=== PATIENT | female | born 1980 | race Caucasian/White ===

== ENCOUNTER 2019-01-11 12:29 | Day surgery (SDC) | payer OTHER, SELFPAY ==
[2019-01-06 12:22] VITALS: BMI 43.2
[2019-01-11] VITALS (17 sets, daily range): BP systolic 130–172; BP diastolic 83–108; PULSE 88–97; RESP 10–18; TEMP 36.4–36.6; O2SAT 94–99; BMI 43.2
--- NOTE | 2019-01-11 | DI.RAD.S_ITS ---
PROCEDURE: XR LUMBAR SPINE 2-3V INDICATIONS: L5-S1 RIGHT HEMILAMI, L4-5 LAMI TECHNIQUE: Fluoroscopic images were obtained during an operative procedure and submitted for interpretation following the completion of the procedure. COMPARISON: [facility] Outside Film, MR, MR LUMBAR SPINE WITHOUT CONTRAST, 10/04/2018, 11:56. [facility] Outside Film, CT, CT LUMBAR SPINE WITHOUT CONTRAST, 11/03/2018, 11:47. FINDINGS: These fluoroscopic images were performed for intraoperative localization. On these images, metallic probes can be seen overlying the lower lumbar spine. Please correlate with intraoperative findings. IMPRESSION: Normal intraoperative examination. Dictated by: Paddy Maynard M.D. on 01/11/2019 at 15:55 Approved by: Paddy Maynard M.D. on 01/11/2019 at 15:57
[2019-01-11] MEDS: LACTATED RINGERS 1,000 ML 42 ML IV ×2 (13:31→15:52)
--- NOTE | 2019-01-11 14:29 | PM.PREOP ---
Pre-operative Note Interval Note History & Physical reviewed/Exam performed by Physician: Yes Changes to H&P: No
[2019-01-11] MEDS: MIDAZOLAM 2 MG/2 ML VIAL IV (14:48)
[2019-01-11] MEDS: APREPITANT 40 MG CAPSULE PO (14:48)
[2019-01-11] MEDS: CEFAZOLIN 2 GM/100 ML FROZ.PIGGY IV (15:05)
--- NOTE | 2019-01-11 15:44 | SUR.OPER ---
Prone on spine table, head in foam head support, padded chest and pelvic supports, gel pad at knees, lower legs supported by pillows; nipples, genitalia and toes free of pressure, arms secured on foam padded arm boards at <90 degrees abduction. Tape over blanket at thigh secured to table.
[2019-01-11] MEDS: BUPIVACAINE 0.25% W/ EPI 30 ML VIAL INJ (15:53)
[2019-01-11] MEDS: methylPREDNISolone acet DEPO 40 MG/ML VIAL IM (15:54)
--- NOTE | 2019-01-11 16:33 | P.OP_ITS ---
Operative Date/Time/Diagnoses Date of procedure: 01/11/19 Time of procedure: 15:33 Pre-op diagnosis: 1. L4-5, L5-S1 spinal stenosis 2. L5-S1 disc herniation Post-op diagnosis: same Procedure & Clinicians Procedure: 1. L4-5 laminectomy with partial faceteomies 2. L5-S1 right microdiscectomy with laminotomy 3. Utilization of microsurgical technique and operating microscope Same procedure as scheduled: Yes Indications: Patient has been having chronic back pain and worsening lumbar radiculopathy. Patient failed multiple conservative management with worsening pain weakness and numbness in her lower extremity. Patient has been having difficulty performing activity of daily living. After discussing risks benefits of treatment options, patient elected proceed with surgery. Surgeon: Kev Matt Assistant Account Manager: Irina Reeder Click Yes if Unassisted: No Anesthesia Type: General Operative Notes Closure Type: primary Specimen(s): none sent Estimated Blood Loss (mL): 10 Blood products transfused: none Procedure in detail: Patient was seen in the preoperative area. Risks and b enefits of the surgery was discussed with the patient. Informed consent was obtained from the patient and placed in the chart. Surgical site was marked. Patient was taken to the operative room. General anesthesia was administered. Prophylactic antibiotic was given to the patient less than 30 min before the incision was made. Patient was placed into a prone position on the Pierce table. Patient's back was then prepped and draped in the sterile fashion. Time- out was performed at this time. Using AP and lateral C-arm imaging the interval between L4-5 was identified and marked on patient's back. A 1 inch incision 1 in from midline was made on the right side. The fascia was incised in line with skin incision. Globus MARS retractors was placed inside the incision and docked onto the L4 lamina. Using microsurgical technique and operating microscope, a L4 laminectomy was performed using a Kerrison rongeur. Liagamentum flavum was resected at the site of the laminotomy. Either side of the dura was exposed. Partial facetcomies was performed to further decompress the lateral recess. After the laminectomy was completed, the area medial lateral superior and inferior to the area of the laminectomy was inspected and explored using a micro curette. No other impinging structure was identified. The MARs retractor was then redirected over the L5-S1 level over x-ray guidance. Using microsurgical technique and operating microscope a microdiskectomy was performed at L5-S1 level after performing a laminotomy at the L5 level. The thecal sac and the S1 nerve root was retracted medially to expose a large herniated disc at L5-S1 level. Annulotomy was performed using the 11 blade. The herniated disc fragment was removed using a pituitary. After the microdiskectomy was completed the area medial lateral superior inferior to the area of the disc herniation was palpated. No other impinging structure was identified. The wound was then irrigated with sterile normal saline. 40 mg Depo-Medrol was placed into the epidural space. The deep fascia was closed with 1-0 Vicryl. The subcutaneous tissue was closed with 2-0 Vicryl. The skin was closed with skin laura. Patient tolerated the procedure well. There were no complications. Patient was transferred recovery room in stable condition. Complications: none Post-operative Condition: stable Disposition: PACU Plan for aftercare: Discharge to home
[2019-01-11] MEDS: HYDROMORPHONE 2 MG INJ IV ×3 (16:55→17:08)
[2019-01-11] MEDS: HYDROMORPHONE 2 MG INJ (17:02)
[2019-01-11] MEDS: hydrOXYzine 50 MG/ML INJ 25 MG IM (17:03)
--- NOTE | 2019-01-11 17:27 | SUR.PHASEI ---
Patient arrived in PACU with 10/10 pain, crying, and moaning. Medicated with Dilaudid
[2019-01-11] MEDS: LORazepam 2 MG/ML INJ 0.25 MG IV (18:30)
[2019-01-11] MEDS: OXYCODONE/ACETAMINOPHEN 5/325 TABLET 1 TAB PO (18:41)
== END 2019-01-11 19:54 | disposition home or self-care (01) ==
LOC: OR 12:32
PROVIDERS: Visit Provider Orthopaedic Surgery Orthopaedic Surgery of the Spine
PROC: (CPT 63047; principal; 2019-01-11 14:45)
DX: M48.061 Spinal stenosis, lumbar region without neurogenic claudication (principal); M43.17 Spondylolisthesis, lumbosacral region; M51.17 Intervertebral disc disorders with radiculopathy, lumbosacral region; E03.9 Hypothyroidism, unspecified; M47.27 Other spondylosis with radiculopathy, lumbosacral region
CPT/HCPCS: 63047; 63030; 72100; 76000; J0690; J1030; J1170; J2060; J2250; J2704; J3010; J3410; J8501

== ENCOUNTER 2020-01-05 15:48 | Inpatient (IN) | payer OTHER, SELFPAY ==
[2019-12-28 13:03] VITALS: BMI 42.7
[2020-01-04] VITALS (17 sets, daily range): BP systolic 95–149; BP diastolic 49–92; PULSE 63–791; RESP 11–100; TEMP 36.3–36.9; O2SAT 2–100; BMI 42.7
--- NOTE | 2020-01-04 | DI.RAD.S_ITS ---
PROCEDURE: XR LUMBAR SPINE 2-3V INDICATIONS: L4-5 TLIF TECHNIQUE: 2 views of the lumbar spine were acquired. COMPARISON: [facility], CR, XR LUMBAR SPINE 2-3V, 01/11/2019, 16:39. FINDINGS: Spot fluoroscopic intraoperative images demonstrating L4-L5 posterior spinal fixation with paraspinal dilia and pedicle screws. There is also interbody cage graft. Expected intraoperative alignment. Dictated by: Mehul Quiñonez M.D. on 01/04/2020 at 15:45 Approved by: Mehul Quiñonez M.D. on 01/04/2020 at 15:46
[2020-01-04] MEDS: LACTATED RINGERS 1,000 ML 42 ML IV ×3 (11:38→14:58)
[2020-01-04] MEDS: ACETAMINOPHEN 325 MG TABLET 975 MG PO (12:06)
--- NOTE | 2020-01-04 12:07 | PM.PREOP ---
Pre-operative Note COVID-19 COVID-19 status: Negative Result date/Date tested (Pos, Neg/Pending): 01/02/20 Interval Note History & Physical reviewed/Exam performed by Physician: Yes Changes to H&P: No
[2020-01-04] MEDS: fentaNYL 100 MCG/2 ML INJ 50 MCG IV (12:22)
[2020-01-04] MEDS: CEFAZOLIN 2 GM/100 ML FROZ.PIGGY IV ×2 (12:38→20:30)
[2020-01-04] MEDS: BUPIVACAINE LIPOSOME 266 MG/20 ML VIAL INJ (13:23)
[2020-01-04] MEDS: BUPIVACAINE 0.25% W/ EPI 30 ML VIAL INJ (13:23)
--- NOTE | 2020-01-04 15:27 | P.OP_ITS ---
Operative Date/Time/Diagnoses Date of procedure: 01/04/20 Time of procedure: 13:28 Pre-op diagnosis: 1. L4-5 recurrent disc herniation 2. L4-5 spinal stenosis with radiculopathy with hx of microdiscectomy Post-op diagnosis: same Procedure & Clinicians Procedure: 1. L4-5 Postero-lateral and posterior interbody fusion 2. L4-5 interbody cage placement. 3. L4-5 decompressive laminectomy with bilateral facetecomies 4. L4-5 Posterior non-segmental instrumentation 5. [place]arlan of bone marrow from iliac crest 6. Utilization of microsurgical technique and operating microscope Same procedure as scheduled: Yes Indications: Patient has been having chronic back pain and worsening lumbar radiculopathy. Patient is status post previous lumbar microdiskectomy at the same level. Patient had good pain relief for over 6 months. Patient has progressive worsening radiculopathy with new MRI showing recurrent disc herniation causing radiculopathy on the left leg. Patient failed multiple conservative management with worsening pain weakness and numbness in her lower extremity. Patient has been having difficulty performing activity of daily living. After discussing risks benefits of treatment options, patient elected proceed with surgery. Surgeon: Kev Matt Mental Health Consultant: Ayde Gandara Click Yes if Unassisted: No Anesthesia Type: General Operative Notes Closure Type: primary Specimen(s): none sent Prosthetic devices, grafts, tissues, transplants, or devices: Globus revolve screws, Rise cage Estimated Blood Loss (mL): 50 Blood products transfused: none Procedure in detail: Patient was seen in the preoperative area. Risks and bennie efits of the surgery was discussed with the patient. Informed consent was obtained from the patient and placed in the chart. Surgical site was marked. Patient was taken to the operative room. General anesthesia was administered. Prophylactic antibiotic was given to the patient less than 30 min before the incision was made. Patient was placed into a prone position on the Pierce table. Patient's back was then prepped and draped in the sterile fashion. Time- out was performed at this time. Using AP and lateral C-arm imaging the interval between L4-5 was identified and marked on patient's back. A 2 inch incision 2 in from midline was made on the left side first. The fascia was incised in line with skin incision. Globus MARS retractors was placed inside the incision and docked onto the L4 lamina. Using microsurgical technique and operating microscope, a L4 laminectomy and L4-5 facetectomy was performed using a Kerrison rongeur. The disc space at L4-5 was identified. And a total diskectomy was performed at L4-5 level. Patient was found to have large extruded disc fragments in the epidural space compressing on the thecal sac as well as the left L4 and L5 nerve roots. After total fa cetectomy was performed in order to fully decompress the epidural space and neural foramen L4-5 level was found to be grossly unstable and require fusion procedure. The endplates were decorticated using a rasp and shaver. The total diskectomy and decortication was performed at L4-5 level in order to to accomplish a L4-5 fusion. The local bone from the laminectomy and facetectomy was saved for local bone grafting. After the total diskectomy and decortication was completed, Trifecta bone graft material was combined with local bone that was harvested earlier. At this time, a separate skin is incision was made over the iliac crest. A Jamshidi needle was inserted into the iliac crest through a separate skin incision. 5 cc of bone marrow aspiration was obtained through the separate skin incision using a Jamshidi needle from the iliac crest. The bone marrow aspiration was combined with local bone and the Trifecta bone grafting material. The bone grafting material was placed into the L4-5 interbody space along with a expandable cage. The cage was expanded to its maximum height using the torque limiting screwdriver. At this time a mirror image incision was made on the right side. The fascia was incised in line with the skin incision. Globus MARS retractor was inserted and docked onto the L4-5 posterolateral gutter. Using the power drill, posterior- lateral decortication was performed at L4-5 level until bleeding cortical bone was identified. The remaining bone grafting material was placed into the L4-5 posterior lateral gutter he order to accomplish posterolateral fusion at the L4- 5 level. Using the double C-arm technique, pedicle screws were placed into the L4-5 pedicles bilaterally. This was done by placing the Jamshidi needle into the pedicles, then placing the guidewires over the Jamshidi needle, and finally placing the cannulated screws over the guidewires bilaterally. After the pedicle screws were placed, 2 titanium rods was locked into the heads of the pedicle screws using locking caps and torque limiting screwdriver. After all the hardware was placed, and confirmed with AP and lateral C-arm imaging, the wound was then irrigated with sterile normal saline and packed with Ray-Mark gauze for 3 min to accomplish hemostasis. After the gauze was removed the deep fascia was closed with #1 Vicryl suture. The subcutaneous layer was closed with 2-0 Vicryl. The skin was closed with skin laura. Patient tolerated the procedure well. There were no complications. Complications: none Post-operative Condition: stable Disposition: PACU Plan for aftercare: Admit to inpatient hospital
[2020-01-04] MEDS: HYDROMORPHONE 2 MG INJ IV ×2 (15:49→16:03)
[2020-01-04] MEDS: fentaNYL 100 MCG/2 ML INJ IV ×2 (15:49→16:02)
[2020-01-04] MEDS: hydrOXYzine 50 MG/ML INJ 25 MG IM (15:49)
[2020-01-04] MEDS: ONDANSETRON 4 MG/2 ML INJ IV (15:49)
[2020-01-04] MEDS: OXYCODONE IR 5 MG TABLET PO (16:32)
[2020-01-04] MEDS: OXYCODONE IR 5 MG TABLET 10 MG PO ×3 (17:30→23:33)
[2020-01-04] MEDS: SODIUM CHLORIDE 0.9% 1,000 ML 100 ML IV (17:30)
[2020-01-04] MEDS: HYDROMORPHONE 0.5 MG INJ IV ×4 (17:31→23:33)
[2020-01-04] MEDS: SENNOSIDES 8.6 MG TABLET 17.2 MG PO (20:30)
[2020-01-04] MEDS: DOCUSATE 100 MG CAPSULE PO (20:30)
--- NOTE | 2020-01-04 22:55 | PC.NURSE ---
Admit/Evening Shift Note- Patient arrived to room via bed at 1645 via bed from PACU. Patient alert and oriented and able to make needs known to staff. Admit questions done, medications reviewed,physical assessment done, and skin check completed. Gauze dressing to lower back C/D/I. PRN Oxycodone and PRN IV Dilaudid given for C/O pain at 8-9/10. Patient tolerated with no s/s of ASE noted. SCD's on. Patient oriented to bed and bed controls, room, bathroom, lights, phone, menu, and call dexter/tv remote. Safety measures in place. Patient agrees to call for assistance. bed alarm activated. Callbell and phone within reach. will continue to monitor.
[2020-01-05] VITALS: BP 120/74; PULSE 84; RESP 16; TEMP 36.3; O2SAT 97
[2020-01-05] MEDS: HYDROMORPHONE 0.5 MG INJ IV ×5 (02:47→17:18)
[2020-01-05] MEDS: hydrOXYzine pamoate 25 MG CAPSULE PO ×2 (02:47→06:51)
[2020-01-05] MEDS: OXYCODONE IR 5 MG TABLET 10 MG PO (04:14)
[2020-01-05 04:16] VITALS: BP 134/66; PULSE 74; RESP 18; TEMP 36.3; O2SAT 95
[2020-01-05] MEDS: SODIUM CHLORIDE 0.9% 1,000 ML 100 ML IV (04:19)
[2020-01-05] MEDS: CEFAZOLIN 2 GM/100 ML FROZ.PIGGY IV (04:56)
--- NOTE | 2020-01-05 07:34 | P.PN_ITS ---
Subjective Subjective Date Patient Seen: 01/05/20 Time Patient Seen: 07:34 Interval history: POD #1 s/p L4-[address] Matt. Patient complaining of significant pain and the spasms in the back. She states the Oxycodone does not come close to controlling her pain. She has not worked with PT yet. She said prior to surgery her pain was at an 8/10. Exam Vital Signs (past 8 hours): - 01/05/20 00:00 01/05/20 04:16 Temperature 97.4 F L 97.3 F L Pulse Rate 84 74 Respiratory Rate 16 18 Blood Pressure 120/74 134/66 Pulse Oximetry 97 95 Oxygen Delivery Method Room Air Oxygen Flow Rate 0 Narrative Exam Narrative: Patient lying in bed in NAD. She is alert and oriented X3. Calv es are soft, compressible, and nontender bilaterally. She's able to actively dorsiflex and plantarflex. SILT throughout BLEs. SCDs on and functioning. Assessment & Plan Post-op Postoperative Procedures: Procedures Operation Date: 01/04/20 12:15 Actual Procedures Side Surgeon p L4-5 TLIF Kev Matt MD Patient will mobilize with PT today. Will change pain meds to Dilaudid 2 mg po every 3 hours from Oxycodone. Encouraged use of muscle relaxants as that is her primary complaint. Anticipate discharge in next 1-2 days. Quality VTE Deep Vein Thrombosis/Pulmonary Embolism Present on Admission: No
[2020-01-05] MEDS: LEVOTHYROXINE 125 MCG TABLET PO (08:28)
[2020-01-05] MEDS: SERTRALINE 50 MG TABLET 25 MG PO (08:28)
[2020-01-05 08:30] VITALS: BP 115/63; PULSE 84; RESP 16; TEMP 36.8; O2SAT 98
[2020-01-05] MEDS: HYDROMORPHONE 2 MG TABLET PO ×3 (08:30→15:46)
[2020-01-05] MEDS: DOCUSATE 100 MG CAPSULE PO ×2 (08:30→21:00)
[2020-01-05 08:40] LABS: Hematocrit 37.1 % (36-46); Hemoglobin 12.2 g/dL (12.0-16.0); Mean Corpuscular HGB Conc 32.7 % (30-36); Mean Corpuscular Hemoglobin 28.3 PG (26-34); Mean Corpuscular Volume 86.4 fL (80-100); Platelet Count 308 X10^3/uL (150-400); Red Cell Distribution Width 13.7 % (11.6-14.8); White Blood Cell Count 14.8 X10^3/uL (4.5-11.0)
--- NOTE | 2020-01-05 09:00 | PT.IIE ---
Current Diagnoses Other spondylosis with radiculopathy, lumbosacral region (01/04/20) Spinal stenosis, lumbar region without neurogenic claudication (01/04/20) Other intervertebral disc displacement, lumbar region (01/04/20) Surgery Performed Operation Date: 01/04/20 12:15 Actual Procedures p L4-5 TLIF - Kev Matt MD Surgical History (Last Updated 12/28/19 @ 13:13 by Britany Ureña, RN) History of back surgery (Acute 2019) History of section (Acute) Hx of discectomy (Acute) Hx of laminectomy (Acute 01/11/19) S/P epidural steroid injection (Acute) Medical History (Last Updated 12/28/19 @ 13:18 by Britany Ureña RN) Accidental fall on or from stairs or steps (Acute ~2004) Arthritis (Acute) Depression (Acute) Easy bruisability (Acute) History of DVT of lower extremity (Acute 2017) Hypothyroid (Acute) Spinal stenosis (Acute) Physical Therapy Inpatient Evaluation/Re-Eval M1 PT/OT-IP Prior Functional Status Start: 01/05/20 12:23 Freq: NEEDED Status: Active Protocol: Document 01/05/20 09:00 AB (Rec: 01/05/20 12:42 AB [id number]) Medical Review Prior Functional Status Medical History Reviewed Yes Communication able to make needs known Mobility and Gait pt stated that she is independent with all mobilities and ambulation without AD Social History Household Members spouse,children Living Arrangements House Number of Floors (Floors) Two Floors Number of Stairs To Enter/Railing? pt stated that she will just stay upstairs and has 12 steps with L rail to get there has 1 step to enter Home Environment Standard Height Toilet,Tub/ Shower Home Equipment Shower Seat without Backrest, Hand Held Shower,Grab Bars In Shower Additional Social History Comment pt stated that spouse is out doing business and she will be staying at her parents house and they will assist her. Above info is regarding pt's parent's house. Pt also has a 5y/o and 2 y/o daughter has an adjustable bed M2 PT-IP Current Condition Start: 01/05/20 12:23 Freq: NEEDED Status: Active Protocol: Document 01/05/20 09:00 AB (Rec: 01/05/20 12:42 AB [email or web address]) Physical Therapy Current Condition Current Condition Evaluation Date 01/05/20 Treatment Diagnosis s/p L4-5 fusion/lami; difficulty in walking Onset Date 01/04/20 Precautions Lumbar Precautions Log Roll,No Twisting,Limit Bending,Lifting Restriction of 10 lbs,Gait Belt above Incisional Area M3 PT-IP Subjective Start: 01/05/20 12:23 Freq: NEEDED Status: Active Protocol: Document 01/05/20 09:00 (Rec: 01/05/20 12:42 [email or web address]) Subjective Physical Therapy Visit Type Type Initial Evaluation Visit Start Time 09:00 Visit Stop Time 09:51 Total Visit Minutes 51 Number of LEAD SCIENTIST Visits 0 Physical Therapy Visit Comments Patient Comments pt c/o increase pain and requesting to go back to bed Therapy Pain Assessment Pain When Pain Assessed At Rest Pain Present Pain Present Pain Reported Location Lower Back Intensity 9 Scale Used Numeric (0 - 10) Pain Behaviors Crying,Guarding,Restlessness Pain Management Techniques Apply Cold,Distraction, Modification of Treatment,Re- positioning,Timing of Activity with Medications M4 PT-IP Mobility and Gait Start: 01/05/20 12:23 Freq: NEEDED Status: Active Protocol: Document 01/05/20 09:00 AB (Rec: 01/05/20 12:42 [email or web address]) PT-Bed Mobility Assessment Rolling Type of Rolling Log Rolling Level of Assist Maximal Assistance,2 Person Assistance Sit to Supine Sit to Supine Maximum Assistance,2 Person Assistance,Bedrails PT-Transfer Assessment Sit to and From Stand Sit to and from Stand Maximum Assistance,1 Person Assistance,2 Person Assistance ,Use of Upper Extremities Equipment Transfer Assistive Device Gait Belt,Front Wheeled Walker Orthotic/Prosthetic Devices or Brace: No Transfers Transfer Destination Chair,Bedside Commode Transfer Technique ambulated using FWW Transfer Ability Level of Assist Minimal Assistance,1 Person Assistance,Use of Upper Extremities Comments Mobility Comments pt sitting on chair. educated on back precautions. c/o increase back pain but pt already gottent her pain meds ~30 min. stated that she needs the IV pain meds. nurse aware. completed sit to stand max A but pt unable to stand upright and stated that she cannot do it. c/o not being able to breath. O2 sat checked 99%. pt rested for a few minutes. nurse gave IV dilaudid. attempted standing again and completed max A x 1- 2 and cues. ambulated towards the bed using fWW min A but requested to use the toilet before going back to bed. besdie commode positioned. completed stand to sit El to mod A for controlled descent. completed sit to stand from bedside commode max A . attempted to do hygiene care but unable and needs assistance. used FWW for standing balance min A while assisted with hygiene care. ambulated towards the bed using FWW min A. completed sit to supine max A x 1-2 and max cues. positioned in bed total A x 2 and max cues. call light and table placed within reach. Gait Assessment Gait Gait Assistance Required: Minimum Assistance Distance (Feet) 15 Able to Maintain Weight Bearing Status Yes During Gait Assistive Devices Assistive Device Gait Belt,Front Wheeled Walker Orthotic/Prosthetic Devices or Brace: No Gait Deviations General Gait Pattern Decreased Stride Length, Decreased Feet Clearance,Step- to Gait Factors Limiting Gait Function Factors Limiting Gait Function Decreased Activity Tolerance, Decreased Sensation,Decreased Strength,Difficulty Following Directions,Limited Range of Motion,Pain,Poor Balance,Poor Safety Awareness PT-Balance Assessment Sitting Balance and Reactions Static Sitting Balance Ability Good Dynamic Sitting Balance Ability Fair Standing Balance and Reactions Static Standing Balance Ability Poor Dynamic Standing Balance Ability Poor Device Used FWW M5 PT-IP Objective Assessments Start: 01/05/20 12:23 Freq: NEEDED Status: Active Protocol: Document 01/05/20 09:00 (Rec: 01/05/20 12:42 [email or web address]) Orientation Orientation/Cognition Level of Alertness Alert Orientation Name,Situation Safety Awareness Decreased Safety Awareness Gross Range of Motion Lower Extremity ROM Assessment Within Functional Limits Strength Lower Extremity Strength Assessment Bilaterally Impaired Comments Strength Comments RLE: 4-/5 LLE 3+/5 Coordination Assessment Gross Coordination Gross Coordination WNL Sensation Assessment Sensation Gross Sensation Left LE Impaired Comments Sensation Comments stated decrease sensation on L big and 2nd toes Muscle Tone Muscle Tone WNL Yes M6 PT-IP Treatment Start: 01/05/20 12:23 Freq: NEEDED Status: Active Protocol: Document 01/05/20 09:00 AB (Rec: 01/05/20 12:42 [email or web address]) Physical Therapy Treatment Education Education Provided Precautions,Weight Bearing Status,Post-Op Packet,Safety M7 PT-IP Assessment and Plan Start: 01/05/20 12:23 Freq: NEEDED Status: Active Protocol: Document 01/05/20 09:00 AB (Rec: 01/05/20 12:42 AB [email or web address]) PT Summary Assessment and Plan Potential Rehabilitation Potential Good Status of Condition at Evaluation Evolving Summary Impairments Pain,ROM,Strength,Balance, Coordination,Sensation,Tone, Cognition,Bed Mobility, Transfers,Gait,Activity Tolerance Assessment Summary pt requiring max A x1-2 and max cues and unable to tolerate much activity due to c/o increase pain. informed pt regarding current level of assistance and probable need to go to SNF rehab depending on progress. pt understood and agreed. stated that she knows she has to be able to move better before she can go home. will continue to assess progress. Goals Bed Mobility Goal Standby Assistance Transfer Goal Standby Assistance,Front Wheeled Walker Gait Goal Standby Assistance,Front Wheel Walker Gait Distance 150 Other Goals improve ambulation using FWW 250 ft SBA up/down 1 step using FWW SBA up/down 12 steps using L rail SBA Days to Meet Goals 5 Frequency of Treatment Frequency Of Treatment Twice a Day Treatment Plan Physical Therapy Treatment Plan Bed Mobility Training,Transfer Training,Gait Training, Therapeutic Exercise,Balance Retraining,Post Op Education, Discharge Planning,Hot or Cold Pack,Neuromuscular Re-ed, Coordination Retraining Recommendations To Nursing Amount of Assist Needed 2 Person Assist Discharge Recommendations PT Discharge Recommendations SNF Rehab Transportation Needs at Discharge Wheelchair/Cabulance
[2020-01-05] MEDS: hydrOXYzine pamoate 25 MG CAPSULE 50 MG PO (10:31)
--- NOTE | 2020-01-05 11:28 | PC.NURSE ---
Day shift- Pt A&OX4, anxious regarding OOB movement, pain management. Surgical PA adjusted pain management that was updated with pt. New Dilaudid po prn given at 0830, Dilaudid IV PRN given at 0930 for 9/10 lower back incision pain, tightness, intermittent spasms, intermittent sharpness. PRN Vistaril increased dose of 50mg prn given at 1040. Upon reassessment pt sleeping, resps shallow, regular, RR 14 bpm. Will monitor. Lower back dressing CDI, pt states having tingling to left great toe and intermittent to foot which occurred prior to surgery. OOB to chair around 0820 and back with PT assist around 0940. Ice pack to lower back incision while in chair and while right side lying in bed. When pt was first OOB to BSC and then to chair with 1PA with HYDROPULPER around 0820. Pt was sitting in chair, very vocal stating she was going to faint, encouraged slowing her breathing, drinking water, repositioned her several times in chair, pt settled. Bench cushion placed under pt's feet while sitting in chair, pt stated this helped and put less pressure on her back, cushion was in between bottom support legs of overbed tray table. Will continue to monitor. No other voiced concerns. Plan is for OOB movement with PT/OT, pain/spasm management. Call light within reach.
[2020-01-05 12:00] VITALS: BP 116/59; PULSE 99; RESP 16; TEMP 37.6; O2SAT 99
--- NOTE | 2020-01-05 15:34 | PT.IPTN ---
Current Diagnoses Other spondylosis with radiculopathy, lumbosacral region (01/04/20) Spinal stenosis, lumbar region without neurogenic claudication (01/04/20) Other intervertebral disc displacement, lumbar region (01/04/20) Surgery Performed Operation Date: 01/04/20 12:15 Actual Procedures p L4-5 TLIF - Kev Matt MD Physical Therapy Treatment Note M2 PT-IP Current Condition Start: 01/05/20 12:23 Freq: NEEDED Status: Active Protocol: Document 01/05/20 09:00 AB (Rec: 01/05/20 12:42 AB [id number]) Physical Therapy Current Condition Current Condition Evaluation Date 01/05/20 Treatment Diagnosis s/p L4-5 fusion/lami; difficulty in walking Onset Date 01/04/20 Precautions Lumbar Precautions Log Roll,No Twisting,Limit Bending,Lifting Restriction of 10 lbs,Gait Belt above Incisional Area M3 PT-IP Subjective Start: 01/05/20 12:23 Freq: NEEDED Status: Active Protocol: Document 01/05/20 14:45 KS (Rec: 01/05/20 16:03 KS [id number]) Subjective Physical Therapy Visit Type Type Treatment Note Visit Start Time 14:45 Visit Stop Time 15:34 Total Visit Minutes 49 Notes Co-treat w/ OT Number of CHEMICAL OPERATIONS SPECIALIST Visits 1 Physical Therapy Visit Comments Patient Comments Pt agreeable to work w/ therapy and requesting use of BSC. Therapy Pain Assessment Pain When Pain Assessed During Mobility Pain Present Pain Present Pain Reported Location Lower Back Intensity 8 Scale Used Numeric (0 - 10) Description Sharp,Tightness Pain Behaviors Guarding,Moaning,Restlessness, Wincing Pain Management Techniques Apply Cold,Distraction, Modification of Treatment,Re- positioning M4 PT-IP Mobility and Gait Start: 01/05/20 12:23 Freq: NEEDED Status: Active Protocol: Document 01/05/20 14:45 KS (Rec: 01/05/20 16:03 KS [id number]) PT-Bed Mobility Assessment Rolling Type of Rolling Log Rolling Level of Assist Maximal Assistance,2 Person Assistance Supine to Sit Supine to Sit Maximum Assistance,2 Person Assistance,Bedrails Scooting Scooting to Edge of Bed Moderate Assistance PT-Transfer Assessment Sit to and From Stand Sit to and from Stand Minimal Assistance,2 Person Assistance,Use of Upper Extremities Equipment Transfer Assistive Device Gait Belt,Front Wheeled Walker Orthotic/Prosthetic Devices or Brace: No Transfers Transfer Destination Chair,Bedside Commode Transfer Technique Stand Step Pivot Transfer Ability Level of Assist Minimal Assistance,2 Person Assistance,Use of Upper Extremities Comments Mobility Comments Pt in bed upon arrival from therapy. Max A x2 for logroll and sidelying<>sit. Mod A and cues for scooting EOB, pt needed Min A to remain balanced initially, but eventually relied on bed rails to support herself. Min A x2 for sit<>stand. Pt then completed stand step pivot transfer to [facility] Min A x2 for FWW management w/ verbal and tactile cues. Pt Min Ax2 for stand<>sit w/ cues for hand placement. Pt voided on toilet and then became dizzy w/ reported ear ringing and feeling of blacking out. Nursing arrived, pt able to recover w/ cues for deep breathing. BP:104:51. Pt then stated she was ready to transfer to chair, dizziness subsided but c/o BLE numbness. Min A x2 for sit<>stand and stand step pivot to chair. Pt able to scoot hips back in chair CGA w/ cues. Pt then c/o chest tightness, pt chest breathing but able to improve to belly breathing w/ cues. RN notified, pt left in chair w/ RN in room and all needs in reach. Gait Assessment Gait Gait Assistance Required: Minimum Assistance,2 Person Assist Distance (Feet) 4 Able to Maintain Weight Bearing Status Yes During Gait Assistive Devices Assistive Device Gait Belt,Front Wheeled Walker Orthotic/Prosthetic Devices or Brace: No Gait Deviations General Gait Pattern Decreased Stride Length, Decreased Feet Clearance,Step- to Gait Factors Limiting Gait Function Factors Limiting Gait Function Decreased Activity Tolerance, Decreased Sensation,Decreased Strength,Difficulty Following Directions,Limited Range of Motion,Pain,Poor Balance,Poor Safety Awareness Comments Gait Comments Please refer to mobility section for details, pt only able to complete 2x stand step pivot transfers. PT-Balance Assessment Sitting Balance and Reactions Static Sitting Balance Ability Fair Dynamic Sitting Balance Ability Fair Standing Balance and Reactions Static Standing Balance Ability Poor Dynamic Standing Balance Ability Poor Device Used FWW M5 PT-IP Objective Assessments Start: 01/05/20 12:23 Freq: NEEDED Status: Active Protocol: Document 01/05/20 09:00 AB (Rec: 01/05/20 12:42 AB [id number]) Orientation Orientation/Cognition Level of Alertness Alert Orientation Name,Situation Safety Awareness Decreased Safety Awareness Gross Range of Motion Lower Extremity ROM Assessment Within Functional Limits Strength Lower Extremity Strength Assessment Bilaterally Impaired Comments Strength Comments RLE: 4-/5 LLE 3+/5 Coordination Assessment Gross Coordination Gross Coordination WNL Sensation Assessment Sensation Gross Sensation Left LE Impaired Comments Sensation Comments stated decrease sensation on L big and 2nd toes Muscle Tone Muscle Tone WNL Yes M6 PT-IP Treatment Start: 01/05/20 12:23 Freq: NEEDED Status: Active Protocol: Document 01/05/20 14:45 KS (Rec: 01/05/20 16:03 KS [id number]) Physical Therapy Treatment Education Education Provided Precautions,Weight Bearing Status,Post-Op Packet,Safety Other Treatments Other Treatment Performed pt able to recall spinal precautions M7 PT-IP Assessment and Plan Start: 01/05/20 12:23 Freq: NEEDED Status: Active Protocol: Document 01/05/20 14:45 KS (Rec: 01/05/20 16:03 KS [id number]) PT Summary Assessment and Plan Potential Rehabilitation Potential Good Status of Condition at Evaluation Evolving Summary Impairments Pain,ROM,Strength,Balance, Coordination,Sensation,Tone, Cognition,Bed Mobility, Transfers,Gait,Activity Tolerance Assessment Summary Pt Max A x2 for bed mobility, Min A x2 for sit<>stand and stand step pivot transfer w/ FWW w/ verbal and tactile cues for FWW management. Pt became dizzy w/ reported ear ringing after voiding on BSC, but recovered w/ cues for deep breathing. Pts BP in sitting 104/51. After final transfer to chair, pt reported chest tightness and RN was notified. Pt limited in mobility d/t pain and dizziness and will require SNF to improve strength and functional mobility. Goals Bed Mobility Goal Standby Assistance Transfer Goal Standby Assistance,Front Wheeled Walker Gait Goal Standby Assistance,Front Wheel Walker Gait Distance 150 Other Goals improve ambulation using FWW 250 ft SBA up/down 1 step using FWW SBA up/down 12 steps using L rail SBA Days to Meet Goals 5 Frequency of Treatment Frequency Of Treatment Twice a Day Treatment Plan Physical Therapy Treatment Plan Bed Mobility Training,Transfer Training,Gait Training, Therapeutic Exercise,Balance Retraining,Post Op Education, Discharge Planning,Hot or Cold Pack,Neuromuscular Re-ed, Coordination Retraining Recommendations To Nursing Amount of Assist Needed 2 Person Assist Discharge Recommendations PT Discharge Recommendations SNF Rehab Transportation Needs at Discharge Wheelchair/Cabulance
--- NOTE | 2020-01-05 15:34 | OT.IP.EVAL ---
Current Diagnoses Other spondylosis with radiculopathy, lumbosacral region (01/04/20) Spinal stenosis, lumbar region without neurogenic claudication (01/04/20) Other intervertebral disc displacement, lumbar region (01/04/20) Surgery Performed Operation Date: 01/04/20 12:15 Actual Procedures p L4-5 TLIF - Kev Matt MD Past Medical History (Last Updated 12/28/19 @ 13:18 by Britany Ureña, RN) Accidental fall on or from stairs or steps (Acute ~2004) Arthritis (Acute) Depression (Acute) Easy bruisability (Acute) History of DVT of lower extremity (Acute 2017) Hypothyroid (Acute) Spinal stenosis (Acute) Surgical History (Last Updated 12/28/19 @ 13:13 by Britany Ureña RN) History of back surgery (Acute 2018) History of section (Acute) Hx of discectomy (Acute) Hx of laminectomy (Acute 01/11/19) S/P epidural steroid injection (Acute) Occupational Therapy Inpatient Evaluation/Re-Eval M1 PT/OT-IP Prior Functional Status Start: 01/05/20 17:12 Freq: NEEDED Status: Active Protocol: Document 01/05/20 14:43 [facility] (Rec: 01/05/20 18:00 [facility] [id number]) Medical Review Prior Functional Status Medical History Reviewed Yes Communication able to make needs known Mobility and Gait pt stated that she is independent with all mobilities and ambulation without AD Activities of Daily Living and IADL's Pt states that her 5 year old daughter would help her with shoes and socks and that she was having more difficulty with pericare needs. Social History Household Members spouse,children Living Arrangements House Number of Stairs To Enter/Railing? pt stated that she will just stay upstairs and has 12 steps with L rail to get there has 1 step to enter Home Environment Standard Height Toilet,Tub/ Shower Home Equipment Shower Seat without Backrest, Hand Held Shower,Grab Bars In Shower Additional Social History Comment pt stated that spouse is out doing business and she will be staying at her parents house and they will assist her. Above info is regarding pt's parent's house. Pt also has a 5y/o and 2 y/o daughter has an adjustable bed M2 OT-IP Current Condition Start: 01/05/20 17:12 Freq: Status: Active Protocol: Document 01/05/20 14:43 [facility] (Rec: 01/05/20 18:00 [facility] [id number]) Occupational Therapy Current Condition Current Condition Evaluation Date 01/05/20 Treatment Diagnosis spinal stenosis, S/P L4-5TLIF Post Operative Precautions Lumbar Precautions Log Roll,No Twisting,Limit Bending,Lifting Restriction of 10 lbs,Gait Belt above Incisional Area M3 OT- IP Subjective and Pain Start: 01/05/20 17:12 Freq: Status: Active Protocol: Document 01/05/20 14:43 [facility] (Rec: 01/05/20 18:00 [facility] [id number]) OT- Subjective Occupational Therapy Visit Type Type Initial Evaluation Visit Start Time 14:43 Visit Stop Time 15:34 Total Visit Minutes 51 Occupational Therapy Visit Comments Patient Comments Pt wanting to get up to use the BSC. Patient/Caregiver Goals Initially pt wanting to go home, but now open to going to skilled rehab. OT Pain Assessment Pain When Pain Assessed At Rest Pain Present Pain Present Pain Reported Location Lower Back Intensity 8 Scale Used Numeric (0 - 10) M4 OT- IP ADL's Start: 01/05/20 17:12 Freq: Status: Active Protocol: Document 01/05/20 14:43 [facility] (Rec: 01/05/20 18:00 [facility] [id number]) OT [id number] General Evaluation Self-Feeding Ability Independent OT ADL-Grooming Comments OT Grooming Comments Not performed OT ADL-Oral Care Comments Oral Care Comments Not performed. OT ADL-Dressing General Eval Lower Body Dressing Ability Total Assistance OT ADL-Toileting General Evaluation Toileting Ability Total Assistance Areas Needing Assistance Perform Perineal Hygiene Devices Toileting Assistive Devices Commode Comments OT Toileting Comments Pt dependent for all toileting needs. OT ADL-Bathing Comments OT Bathing Comments NOt performed. M5 OT- IP IADL's Start: 01/05/20 17:12 Freq: Status: Active Protocol: Document 01/05/20 14:43 [facility] (Rec: 01/05/20 18:00 [facility] [id number]) OT-Instrumental Activities of Daily Living Home Safety Awareness Awareness of Need for Assistance at Home Good Awareness Medication Management Medication Management Comments Pt states does her own medications. Money Management Money Management Comments Pt states her pays the bills. M6 OT- IP Functional Cognition Start: 01/05/20 17:12 Freq: Status: Active Protocol: Document 01/05/20 14:43 [facility] (Rec: 01/05/20 18:00 [facility] [id number]) Cognitive Factors Limiting Selfcare Function Cognitive Ability Level of Alertness Alert Patient Orientation Name,Place,Situation Attention Span Ability Capable of Focused Attention, Capable of Sustained Attention Ability to Follow Commands Able to Follow One Step Commands with Increased Time, Able to Follow One Step Commands with Repetition Cognitive Comments Cognitive Assessment Comments Pt needs simple concrete commands. In addition pt needing lots of encouragement, education to take deep breaths, and keep her eyes open and feeling like she was going to black out. OT- Vision and Hearing OT- Hearing Assessment OT- Hearing Assessment WFL M7 OT- IP Mobility and Balance Start: 01/05/20 17:12 Freq: Status: Active Protocol: Document 01/05/20 14:43 [facility] (Rec: 01/05/20 18:00 [facility] [id number]) OT- Bed Mobility Assessment Supine to Sit Supine to Sit Assist Maximum Assistance,2 Person Assistance OT-Transfer Assessment Sit to and From Stand Sit to and from Stand Minimal Assistance,2 Person Assistance Transfers Transfer Ability Minimal Assistance,2 Person Assistance Technique Transfer Destination Bed,Chair Transfer Technique Stand Step Pivot Devices Transfer Assistive Devices Gait Belt,Front Wheeled Walker Comments Mobility Comments MAX A x2 from sidelying to upright. César x2 to stand and assist for balance, steadying, and assist to help guide the the FWW. OT- Gait Assessment Comments Gait Ability Comments CÉSAR x 2 with FWW. OT- Balance Assessment Sitting Balance and Reactions Static Sitting Balance Ability Good Standing Balance and Reactions Static Standing Balance Ability Poor M8 OT- IP Objective Assessments Start: 01/05/20 17:12 Freq: Status: Active Protocol: Document 01/05/20 14:43 [facility] (Rec: 01/05/20 18:00 [facility] [id number]) OT Gross Range of Motion Upper Extremity Range of Motion ROM Impairments 0-110 for RUE for shoulder flexion and 0-100 LUE. OT- Coordination Assessment Comments Coordination Comments WFL to open packages. OT-Muscle Tone Assessment Muscle Tone WNL Yes M9 OT- IP Assessment and Plan Start: 01/05/20 17:12 Freq: Status: Active Protocol: Document 01/05/20 14:43 [facility] (Rec: 01/05/20 18:00 [facility] [id number]) OT Summary Assessment and Plan Potential Rehabilitation Potential Good Analytic Complexity at Evaluation Low Summary OT Impairments Pain,Balance,Functional Cognition,Functional Mobility, Grooming,Dressing,Toileting, Bathing,Toilet Transfers, Shower Transfers,Activity Tolerance Progress Towards Goals Slow Progress due to Pain,Slow Progress due to Medical Issues,Slow Progress due to Activity Tolerance,Slow Progress due to Cognition Assessment Summary Pt low complexity and main barriers are steps, now needing two person assist for mobility and ADl needs. Pt would benefit from skilled rehab prior to going home. Goals Grooming Goal Independent Dressing Goal Independent Toileting Goal Independent Bathing Goal Independent Toilet Transfer Goal Independent Shower Transfer Goal Independent Patient/Caregiver Education Goal Demonstrate Post-Op Precautions Days to Meet Goals 25 Frequency of Treatment Frequency Of Treatment Once a Day Treatment Plan OT Treatment Plan ADL Training,Functional Cognition Training,Functional Mobility,Patient/Family Education,Discharge Planning Other Treatment Recommendations and Next Education of LB dresing Treatment Focus equipment, standing at sink for grooming needs. Discharge Recommendations OT Discharge Recommendations SNF Rehab Home Equipment Needs defer to SNF Transportation Needs at Discharge Private Vehicle
[2020-01-05] MEDS: GABAPENTIN 300 MG CAPSULE 1200 MG PO ×2 (15:50→20:59)
[2020-01-05 16:00] VITALS: BP 115/68; PULSE 80; RESP 17; TEMP 37.3; O2SAT 99
--- NOTE | 2020-01-05 16:04 | CM.DPNOTE ---
G[facility] Faxed SNF packet to [facility] per patient's request to secure a SNF closer to her home that accepts [facility]
--- NOTE | 2020-01-05 16:20 | CM.DANOTE ---
Eventually met with patient today. She'd returned from TLIF surgery at 1600 last night and did not sleep well due to pain. I was unable to meet with her until after lunch so she could rest. After lunch she met with therapy prior to my meeting her so she was tired and uncomfortable. I introduced myself and the CM role. She immediately indicated she wanted to go to SNF for rehab. and would be willing to pay out of pocket if need be. Her intention was to go to her parents to get stronger but they don't have the type of bed she thinks she needs and their shower has a tub which worries her. She told me that her travels for work and she has 2 kids aged 2 and 5 and the stress of getting better outside of SNF setting is giving her anxiety. She is hoping to get a SNF near her home - either near [place] or [facility]. I told pt. that CM would swing by tomorrow to update her on our progress Aleena ALBERTO updated about my admission assessment.
[2020-01-05] MEDS: HYDROMORPHONE 4 MG TABLET PO ×2 (19:00→22:49)
[2020-01-05] MEDS: diazePAM 5 MG TABLET PO (19:03)
[2020-01-05 20:18] VITALS: BP 121/61; PULSE 81; RESP 16; TEMP 37.2
[2020-01-05] MEDS: OXYCODONE ER 10 MG TAB PO (20:58)
[2020-01-05] MEDS: SENNOSIDES 8.6 MG TABLET 17.2 MG PO (21:00)
[2020-01-05] MEDS: SODIUM CHLORIDE 0.9% FLUSH 10 ML IV (21:01)
[2020-01-06] MEDS: diazePAM 5 MG TABLET PO ×4 (00:25→19:26)
[2020-01-06] MEDS: HYDROMORPHONE 4 MG TABLET PO ×6 (01:59→20:57)
[2020-01-06 03:27] VITALS: BP 119/57; PULSE 76; RESP 20; TEMP 36.1; O2SAT 97
[2020-01-06] MEDS: LEVOTHYROXINE 125 MCG TABLET PO (05:26)
[2020-01-06 05:45] VITALS: BP 74/36; PULSE 93; RESP 20; TEMP 37.1; O2SAT 100
[2020-01-06 06:15] VITALS: BP 106/57; PULSE 78; RESP 16; TEMP 36.6; O2SAT 100
[2020-01-06 08:14] VITALS: BP 109/68; PULSE 93; RESP 19; TEMP 36.9; O2SAT 99
[2020-01-06] MEDS: OXYCODONE ER 10 MG TAB PO ×2 (08:25→20:51)
[2020-01-06] MEDS: DOCUSATE 100 MG CAPSULE PO ×2 (08:25→20:50)
[2020-01-06] MEDS: GABAPENTIN 300 MG CAPSULE 1200 MG PO ×3 (08:32→20:50)
[2020-01-06] MEDS: SERTRALINE 50 MG TABLET 25 MG PO (08:32)
--- NOTE | 2020-01-06 08:35 | PM.PNPO.1 ---
Subjective Subjective Date Patient Seen: 01/06/20 Time Patient Seen: 08:35 Interval history: POD #2 s/p L4-[address] Matt. Patient's pain is better controlled today with OxyContin ER 10 mg b.i.d., Dilaudid 4 mg every 3 hours, Vistaril 50 mg every 4 hours, and Valium 5 mg every 6 hours. Patient states she would be going to her parent's home which is not safe and conducive after surgery due to 15 stairs and high beds. She has only mobilized in her room with physical therapy. She states that when she has to stand she feels like she is going to have a vasovagal episodes. She also states that she is anxious whenever she has to stand and has a lot of anxiety. The Valium is helping with her muscle spasms and anxiety. Exam Vital Signs (past 8 hours): - 01/06/20 03:27 01/06/20 05:45 01/06/20 06:15 Temperature 97.0 F L 98.8 F 97.8 F Pulse Rate 76 93 H 78 Respiratory Rate 20 20 16 Blood Pressure 119/57 L 74/36 L 106/57 L Pulse Oximetry 97 100 100 Oxygen Delivery Method Room Air Oxygen Flow Rate 0 Narrative Exam Narrative: Patient is sitting in bedside chair no acute distress. She is alert orient x3. Calves are soft, compressible, nontender bilaterally. Dressing on back is CDI with minimal shadow drainage on the right side. Objective Labs Result Diagrams: 01/05/20 08:28 Labs: Laboratory Results - last 24 hr 01/05/20 08:28 WBC 14.8 H RBC 4.30 Hgb 12.2 Hct 37.1 MCV 86.4 MCH 28.3 MCHC 32.7 RDW 13.7 Plt Count 308 Assessment & Plan Post-op Postoperative Procedures: Procedures Operation Date: 01/04/20 12:15 Actual Procedures Side Surgeon p L4-5 TLIF Kev Matt MD Patient will continue to mobilize with physical therapy today. Hopefully she will be able to mobilize more than yesterday. She has a history of DVT , mobilizing very slowly, and her breathing has been shallow with IS around a 1000 and getting to 1500 this morning. At this point would recommend ASA 81 mg daily to prevent DVT until she is more mobile. Continue current pain control. Given patient's slow mobility with a contributing factor of her obesity, she may need a SNF for continued care after surgery. The other option is possibly home health with a hospital bed since all of the beds where she will be going would be difficult to get into and a possible fall risk. Quality VTE Deep Vein Thrombosis/Pulmonary Embolism Present on Admission: No
[2020-01-06] MEDS: SODIUM CHLORIDE 0.9% FLUSH 10 ML IV ×2 (08:38→20:51)
--- NOTE | 2020-01-06 10:25 | PT.IPTN ---
Current Diagnoses Other spondylosis with radiculopathy, lumbosacral region (01/05/20) Spinal stenosis, lumbar region without neurogenic claudication (01/05/20) Other intervertebral disc displacement, lumbar region (01/05/20) Surgery Performed Operation Date: 01/04/20 12:15 Actual Procedures p L4-5 TLIF - Kev Matt MD Physical Therapy Treatment Note M2 PT-IP Current Condition Start: 01/05/20 12:23 Freq: NEEDED Status: Active Protocol: Document 01/05/20 09:00 AB (Rec: 01/05/20 12:42 AB [id number]) Physical Therapy Current Condition Current Condition Evaluation Date 01/05/20 Treatment Diagnosis s/p L4-5 fusion/lami; difficulty in walking Onset Date 01/04/20 Precautions Lumbar Precautions Log Roll,No Twisting,Limit Bending,Lifting Restriction of 10 lbs,Gait Belt above Incisional Area M3 PT-IP Subjective Start: 01/05/20 12:23 Freq: NEEDED Status: Active Protocol: Document 01/06/20 10:02 KS (Rec: 01/06/20 12:25 KS [id number]) Subjective Physical Therapy Visit Type Type Treatment Note Visit Start Time 10:02 Visit Stop Time 10:25 Total Visit Minutes 23 Notes Co-treat w/ OT. Number of MARKETING SERVICES SPECIALIST Visits 2 Physical Therapy Visit Comments Patient Comments Pt agreeable to work w/ therapy. M4 PT-IP Mobility and Gait Start: 01/05/20 12:23 Freq: NEEDED Status: Active Protocol: Document 01/06/20 10:02 KS (Rec: 01/06/20 12:25 KS [id number]) PT-Bed Mobility Assessment Scooting Scooting to Edge of Bed Contact Guard Assistance PT-Transfer Assessment Sit to and From Stand Sit to and from Stand Contact Guard Assistance,1 Person Assistance,Use of Upper Extremities Equipment Transfer Assistive Device Gait Belt,Front Wheeled Walker Orthotic/Prosthetic Devices or Brace: No Transfers Transfer Destination Toilet Transfer Technique Pt ambulated w/ FWW Transfer Ability Level of Assist Minimal Assistance,2 Person Assistance,Use of Upper Extremities Comments Mobility Comments Pt in chair upon arrival from therapy and stating she is feeling stronger today compared to yesterday. Pts BP: 130/65 in standing. CGA and cues for hand placement for sit<>stand. Pt then ambulated to sink ~10 ft w/ FWW and was able to maintain standing balance ~2 min while brushing teeth. Pt then ambulated ~20 additional ft around room w/ FWW and CGA. Pt ambulated slowly w/ decreased foot clearance and stride d/t pain and weakness. Pt ambulated to toilet and stand<>sit Min A. Pt left in bathroom w/ OT. Gait Assessment Gait Gait Assistance Required: Minimum Assistance,1 Person Assist Distance (Feet) 30 Able to Maintain Weight Bearing Status Yes During Gait Assistive Devices Assistive Device Gait Belt,Front Wheeled Walker Orthotic/Prosthetic Devices or Brace: No Gait Deviations General Gait Pattern Decreased Stride Length, Decreased Feet Clearance Factors Limiting Gait Function Factors Limiting Gait Function Decreased Activity Tolerance, Decreased Sensation,Decreased Strength,Difficulty Following Directions,Limited Range of Motion,Pain,Poor Balance,Poor Safety Awareness Comments Gait Comments Pt ambulated ~30 ft total w/ FWW and CGA. t c/o headache and ambulated w/ decreased steride and foot clearance. PT-Balance Assessment Sitting Balance and Reactions Static Sitting Balance Ability Fair Dynamic Sitting Balance Ability Fair Standing Balance and Reactions Static Standing Balance Ability Fair Dynamic Standing Balance Ability Fair Device Used FWW M5 PT-IP Objective Assessments Start: 01/05/20 12:23 Freq: NEEDED Status: Active Protocol: Document 01/05/20 09:00 AB (Rec: 01/05/20 12:42 AB [id number]) Orientation Orientation/Cognition Level of Alertness Alert Orientation Name,Situation Safety Awareness Decreased Safety Awareness Gross Range of Motion Lower Extremity ROM Assessment Within Functional Limits Strength Lower Extremity Strength Assessment Bilaterally Impaired Comments Strength Comments RLE: 4-/5 LLE 3+/5 Coordination Assessment Gross Coordination Gross Coordination WNL Sensation Assessment Sensation Gross Sensation Left LE Impaired Comments Sensation Comments stated decrease sensation on L big and 2nd toes Muscle Tone Muscle Tone WNL Yes M6 PT-IP Treatment Start: 01/05/20 12:23 Freq: NEEDED Status: Active Protocol: Document 01/06/20 10:02 KS (Rec: 01/06/20 12:25 KS [id number]) Physical Therapy Treatment Education Education Provided Precautions,Weight Bearing Status,Post-Op Packet,Safety Other Treatments Other Treatment Performed pt able to recall spinal precautions M7 PT-IP Assessment and Plan Start: 01/05/20 12:23 Freq: NEEDED Status: Active Protocol: Document 01/06/20 10:02 GERA (Rec: 01/06/20 12:25 KS [id number]) PT Summary Assessment and Plan Potential Rehabilitation Potential Good Status of Condition at Evaluation Evolving Summary Impairments Pain,ROM,Strength,Balance, Coordination,Sensation,Tone, Cognition,Bed Mobility, Transfers,Gait,Activity Tolerance Progress Towards Goals Progressing Toward Goals Assessment Summary Pt showed improvement w/ mobility and tolerance for activity today. CGA and cues for sit<>stand and ambulation w/ FWW. Pt tolerated ~30 ft w/ FWW and was able to maintain standing balance ~2 min at sink. D/c plan depending on progress, if going home pt will need to complete stair and caregiver training. Goals Bed Mobility Goal Standby Assistance Transfer Goal Standby Assistance,Front Wheeled Walker Gait Goal Standby Assistance,Front Wheel Walker Gait Distance 150 Other Goals improve ambulation using FWW 250 ft SBA up/down 1 step using FWW SBA up/down 12 steps using L rail SBA Days to Meet Goals 5 Frequency of Treatment Frequency Of Treatment Twice a Day Treatment Plan Physical Therapy Treatment Plan Bed Mobility Training,Transfer Training,Gait Training, Therapeutic Exercise,Balance Retraining,Post Op Education, Discharge Planning,Hot or Cold Pack,Neuromuscular Re-ed, Coordination Retraining Recommendations To Nursing Amount of Assist Needed 1 Person Assist Discharge Recommendations PT Discharge Recommendations Home with 22/09 Assist,SNF Rehab Transportation Needs at Discharge Private Vehicle,Wheelchair/ Cabulance
--- NOTE | 2020-01-06 11:12 | OT.IP.TRT ---
Current Diagnoses Other spondylosis with radiculopathy, lumbosacral region (01/05/20) Spinal stenosis, lumbar region without neurogenic claudication (01/05/20) Other intervertebral disc displacement, lumbar region (01/05/20) Surgery Performed Operation Date: 01/04/20 12:15 Actual Procedures p L4-5 TLIF - Kev Matt MD Occupational Therapy Treatment Note M2 OT-IP Current Condition Start: 01/05/20 17:12 Freq: Status: Active Protocol: Document 01/05/20 14:43 [facility] (Rec: 01/05/20 18:00 [facility] [id number]) Occupational Therapy Current Condition Current Condition Evaluation Date 01/05/20 Treatment Diagnosis spinal stenosis, S/P L4-5TLIF Post Operative Precautions Lumbar Precautions Log Roll,No Twisting,Limit Bending,Lifting Restriction of 10 lbs,Gait Belt above Incisional Area M3 OT- IP Subjective and Pain Start: 01/05/20 17:12 Freq: Status: Active Protocol: Document 01/06/20 12:03 [facility] (Rec: 01/06/20 12:21 [facility] [id number]) OT- Subjective Occupational Therapy Visit Type Type Treatment Note Visit Start Time 10:00 Visit Stop Time 11:12 Total Visit Minutes 72 Occupational Therapy Visit Comments Patient Comments Pt agreed to get up and wanting to use the bathroom and wash up at the sink. Patient/Caregiver Goals Pt now feels that she will be able to go home and deciding to stay on the main level and not only having two steps to be able to manage before going to her parents home. OT Pain Assessment Pain When Pain Assessed During Mobility Pain Present Pain Present Pain Reported Location Lower Back Intensity 5 Scale Used Numeric (0 - 10) M4 OT- IP ADL's Start: 01/05/20 17:12 Freq: Status: Active Protocol: Document 01/06/20 12:03 [facility] (Rec: 01/06/20 12:21 [facility] [id number]) OT ADL-Grooming General Evaluation Grooming Ability Standby Assistance Areas Needing Assistance Retrieving/Set-up of Grooming Items Comments OT Grooming Comments Pt tends to lean on the sink for balance while doing grooming needs. OT ADL-Oral Care General Eval Oral Care Ability Independent OT ADL-Dressing General Eval Lower Body Dressing Ability Maximum Assistance Areas Needing Assistance Socks Comments OT Dressing Comments At this time pt feels that it will just be better to have her parents or daughter assist for all LB dressing needs. Pt was show LB dressing equipment. OT ADL-Toileting General Evaluation Toileting Ability Total Assistance Areas Needing Assistance Perform Perineal Hygiene Comments OT Toileting Comments Pt unable to reach and therefore educated on toilet paper aid that would be beneficial or have her mother assist for needs. OT ADL-Bathing Bathing Type Bathing Type Sponge Bath General Evaluation Bathing Ability Maximal Assistance Areas Needing Assistance Wash/Dry Back,Wash/Dry Perineal Area,Wash/Dry Lower Extremities Comments OT Bathing Comments Pt able to assist to sponge off while sitting on the BSC. M5 OT- IP IADL's Start: 01/05/20 17:12 Freq: Status: Active Protocol: Document 01/05/20 14:43 [facility] (Rec: 01/05/20 18:00 [facility] [id number]) OT-Instrumental Activities of Daily Living Home Safety Awareness Awareness of Need for Assistance at Home Good Awareness Medication Management Medication Management Comments Pt states does her own medications. Money Management Money Management Comments Pt states her pays the bills. M6 OT- IP Functional Cognition Start: 01/05/20 17:12 Freq: Status: Active Protocol: Document 01/06/20 12:03 [facility] (Rec: 01/06/20 12:21 [facility] [id number]) Cognitive Factors Limiting Selfcare Function Cognitive Ability Level of Alertness Alert,Drowsy Patient Orientation Name,Place,Situation Attention Span Ability Capable of Focused Attention, Capable of Sustained Attention Ability to Follow Commands Able to Follow One Step Commands Cognitive Comments Cognitive Assessment Comments Pt very groggy and at times. Pt able to follow commands but very sleepy. Pt not needing as much encouragement and overall feeling much better about going home. M7 OT- IP Mobility and Balance Start: 01/05/20 17:12 Freq: Status: Active Protocol: Document 01/06/20 12:03 [facility] (Rec: 01/06/20 12:21 [facility] [id number]) OT-Transfer Assessment Sit to and From Stand Sit to and from Stand Contact Guard Assistance Transfers Transfer Ability Contact Guard Assistance Technique Transfer Destination Bedside Commode,Chair,Toilet Transfer Technique Stand Step Pivot Devices Transfer Assistive Devices Gait Belt,Front Wheeled Walker Comments Mobility Comments CGA to stand from higher surfaces and needing ANJU from lower surfaces to FWW. Pt tends to want to pull up on the FWW to stand. Encourage pt to push up from the BSC, chair, and recliner. OT- Balance Assessment Sitting Balance and Reactions Static Sitting Balance Ability Normal Standing Balance and Reactions Static Standing Balance Ability Fair M8 OT- IP Objective Assessments Start: 01/05/20 17:12 Freq: Status: Active Protocol: Document 01/05/20 14:43 [facility] (Rec: 01/05/20 18:00 [facility] [id number]) OT Gross Range of Motion Upper Extremity Range of Motion ROM Impairments 0-110 for RUE for shoulder flexion and 0-100 LUE. OT- Coordination Assessment Comments Coordination Comments WFL to open packages. OT-Muscle Tone Assessment Muscle Tone WNL Yes M9 OT- IP Assessment and Plan Start: 01/05/20 17:12 Freq: Status: Active Protocol: Document 01/06/20 12:03 [facility] (Rec: 01/06/20 12:21 [facility] [id number]) OT Summary Assessment and Plan Potential Rehabilitation Potential Good Analytic Complexity at Evaluation Low Summary OT Impairments Pain,Balance,Functional Cognition,Functional Mobility, Grooming,Dressing,Toileting, Bathing,Toilet Transfers, Shower Transfers,Activity Tolerance Progress Towards Goals Progressing Toward Goals Assessment Summary Pt much improved today and looking into wanting to go home now. Pt states will be able to stay downstairs and sleep on the couch /recliner. Pt main barrier are the two steps to get into the house. Therefore pending caregiver training pt ot go home with assist versus skilled rehab. Goals Grooming Goal Independent Dressing Goal Independent Toileting Goal Independent Bathing Goal Independent Toilet Transfer Goal Independent Shower Transfer Goal Independent Patient/Caregiver Education Goal Demonstrate Post-Op Precautions Days to Meet Goals 72 Frequency of Treatment Frequency Of Treatment Once a Day Treatment Plan OT Treatment Plan ADL Training,Functional Cognition Training,Functional Mobility,Patient/Family Education,Discharge Planning Other Treatment Recommendations and Next Possible shower. Treatment Focus Discharge Recommendations OT Discharge Recommendations Home with Assistance,Home Health,SNF Rehab Transportation Needs at Discharge Private Vehicle,Wheelchair/ Cabulance
[2020-01-06 11:21] VITALS: BP 98/52; PULSE 75; RESP 17; TEMP 37.2; O2SAT 98
[2020-01-06] MEDS: ASPIRIN EC 81 MG TABLET PO (13:21)
--- NOTE | 2020-01-06 13:47 | PT.IPTN ---
Current Diagnoses Other spondylosis with radiculopathy, lumbosacral region (01/05/20) Spinal stenosis, lumbar region without neurogenic claudication (01/05/20) Other intervertebral disc displacement, lumbar region (01/05/20) Surgery Performed Operation Date: 01/04/20 12:15 Actual Procedures p L4-5 TLIF - Kev Matt MD Physical Therapy Treatment Note M2 PT-IP Current Condition Start: 01/05/20 12:23 Freq: NEEDED Status: Active Protocol: Document 01/05/20 09:00 AB (Rec: 01/05/20 12:42 AB [id number]) Physical Therapy Current Condition Current Condition Evaluation Date 01/05/20 Treatment Diagnosis s/p L4-5 fusion/lami; difficulty in walking Onset Date 01/04/20 Precautions Lumbar Precautions Log Roll,No Twisting,Limit Bending,Lifting Restriction of 10 lbs,Gait Belt above Incisional Area M3 PT-IP Subjective Start: 01/05/20 12:23 Freq: NEEDED Status: Active Protocol: Document 01/06/20 13:09 KS (Rec: 01/06/20 15:20 KS [id number]) Subjective Physical Therapy Visit Type Type Treatment Note Visit Start Time 13:09 Visit Stop Time 13:47 Total Visit Minutes 38 Number of CAREER DISCOVERY TEACHER Visits 3 Physical Therapy Visit Comments Patient Comments Pt agreeable to work w/ therapy. Therapy Pain Assessment Pain When Pain Assessed During Mobility Pain Present Pain Present Pain Reported Location Lower Back Intensity 8 Scale Used Numeric (0 - 10) Description Sharp,Tightness Pain Behaviors Guarding,Moaning,Restlessness, Wincing Pain Management Techniques Apply Cold,Distraction, Modification of Treatment,Re- positioning M4 PT-IP Mobility and Gait Start: 01/05/20 12:23 Freq: NEEDED Status: Active Protocol: Document 01/06/20 13:09 KS (Rec: 01/06/20 15:20 KS [id number]) PT-Bed Mobility Assessment Scooting Scooting to Edge of Bed Contact Guard Assistance PT-Transfer Assessment Sit to and From Stand Sit to and from Stand Minimal Assistance,1 Person Assistance,Use of Upper Extremities Equipment Transfer Assistive Device Gait Belt,Front Wheeled Walker Orthotic/Prosthetic Devices or Brace: No Transfers Transfer Destination Chair,Bedside Commode Transfer Technique Pt ambulated w/ FWW Transfer Ability Level of Assist Minimal Assistance,1 Person Assistance,Use of Upper Extremities Comments Mobility Comments Pt in chair upon arrival from therapy and stating she needed to use bathroom. Pt reported 8/10 pain prior to treatment and requested pain meds, RN notified and pt medicated. CGA for scooting to EOC and Min A w/ cues for sit<>stand w/ FWW . Pt then ambulated ~8 ft to BSC which was in bathroom. Pt stated she is having hard time standing from toilet and needs to use arm rests on BSC. After voiding, pt requested to sit d/t pain and fatigue, she ambulated ~8 ft back to chair and Min A slow descent stand<>sit. Pt left in chair w / all needs in reach. Gait Assessment Gait Gait Assistance Required: Contact Guard Assist,1 Person Assist Distance (Feet) 16 Able to Maintain Weight Bearing Status Yes During Gait Assistive Devices Assistive Device Gait Belt,Front Wheeled Walker Orthotic/Prosthetic Devices or Brace: No Gait Deviations General Gait Pattern Decreased Stride Length, Decreased Feet Clearance Factors Limiting Gait Function Factors Limiting Gait Function Decreased Activity Tolerance, Decreased Sensation,Decreased Strength,Difficulty Following Directions,Limited Range of Motion,Pain,Poor Balance,Poor Safety Awareness Comments Gait Comments Please refer to mobility section for details. Stair Climbing Assessment Comments Stair Climbing Comments unable to assess at this time. Pt will need to complete 2 steps prior to d/c if going home. PT-Balance Assessment Sitting Balance and Reactions Static Sitting Balance Ability Fair Dynamic Sitting Balance Ability Fair Standing Balance and Reactions Static Standing Balance Ability Fair Dynamic Standing Balance Ability Fair Device Used FWW M5 PT-IP Objective Assessments Start: 01/05/20 12:23 Freq: NEEDED Status: Active Protocol: Document 01/05/20 09:00 AB (Rec: 01/05/20 12:42 AB [id number]) Orientation Orientation/Cognition Level of Alertness Alert Orientation Name,Situation Safety Awareness Decreased Safety Awareness Gross Range of Motion Lower Extremity ROM Assessment Within Functional Limits Strength Lower Extremity Strength Assessment Bilaterally Impaired Comments Strength Comments RLE: 4-/5 LLE 3+/5 Coordination Assessment Gross Coordination Gross Coordination WNL Sensation Assessment Sensation Gross Sensation Left LE Impaired Comments Sensation Comments stated decrease sensation on L big and 2nd toes Muscle Tone Muscle Tone WNL Yes M6 PT-IP Treatment Start: 01/05/20 12:23 Freq: NEEDED Status: Active Protocol: Document 01/06/20 13:09 KS (Rec: 01/06/20 15:20 KS [id number]) Physical Therapy Treatment Education Education Provided Precautions,Weight Bearing Status,Post-Op Packet,Safety M7 PT-IP Assessment and Plan Start: 01/05/20 12:23 Freq: NEEDED Status: Active Protocol: Document 01/06/20 13:09 KS (Rec: 01/06/20 15:20 KS [id number]) PT Summary Assessment and Plan Potential Rehabilitation Potential Good Status of Condition at Evaluation Evolving Summary Impairments Pain,ROM,Strength,Balance, Coordination,Sensation,Tone, Cognition,Bed Mobility, Transfers,Gait,Activity Tolerance Assessment Summary Pt had less tolerance for activity this PM as compared to this AM d/t reported 8/10 pain, headache, and fatigue. Pt Min A for sit<>Stand, CGA for ~16 ft ambulation. Pt unable to perform own pericare at this time and needing arm rests to rise from BSC. D/c plan depending on progress. May benefit from SNF, but if going home, pt will need caregiver and stair training. Goals Bed Mobility Goal Standby Assistance Transfer Goal Standby Assistance,Front Wheeled Walker Gait Goal Standby Assistance,Front Wheel Walker Gait Distance 150 Other Goals improve ambulation using FWW 250 ft SBA up/down 1 step using FWW SBA up/down 12 steps using L rail SBA Days to Meet Goals 5 Frequency of Treatment Frequency Of Treatment Twice a Day Treatment Plan Physical Therapy Treatment Plan Bed Mobility Training,Transfer Training,Gait Training, Therapeutic Exercise,Balance Retraining,Post Op Education, Discharge Planning,Hot or Cold Pack,Neuromuscular Re-ed, Coordination Retraining Recommendations To Nursing Amount of Assist Needed 1 Person Assist Discharge Recommendations PT Discharge Recommendations Home with 22/09 Assist,SNF Rehab Transportation Needs at Discharge Private Vehicle,Wheelchair/ Cabulance
--- NOTE | 2020-01-06 14:50 | CM.DPC ---
DCP Cont This morning- attempted numerous SNFs on patient's behalf: [facility]- Never responded [place]- No [facility]- [facility] [place]- [facility] [place]- Faxed clinical and never heard back [facility]- [facility] Rang until disconnect [facility]- Rang and rang until disconnect [facility]- Not accepting referrals [facility]- [facility] ([place])- Will review No SNFs secured, in fact there weren't many that returned this CHAIRMAN & CEO's call. [place] from OT this afternoon that patient now feeling much more confident about returning home w/her family and will plan to DC home. r/o need for HH, may not need upon DC P: DC home w/family is expected, after cg training, following closely JW
[2020-01-06] MEDS: ACETAMINOPHEN 325 MG TABLET 650 MG PO (15:59)
--- NOTE | 2020-01-06 16:17 | PM.PN.1 ---
Exam Vital Signs (past 8 hours): - 01/06/20 11:21 Temperature 99 F Pulse Rate 75 Respiratory Rate 17 Blood Pressure 98/52 L Pulse Oximetry 98 Oxygen Delivery Method Room Air Oxygen Flow Rate 0 Objective Labs Result Diagrams: 01/05/20 08:28 Assessment & Plan Assessment & Plan narrative: Ms. Carrion is POD#2 s/p TLIF. She is slow to progress and needs significant assistance with mobility training. She is neuro intact and dressing intact. Will continue PT and current pain management. Will get input from PT/OT recommendation tomorrow, possible home with home health tomorrow if cleared by PT/OT. Quality VTE Deep Vein Thrombosis/Pulmonary Embolism Present on Admission: No
[2020-01-06] MEDS: SENNOSIDES 8.6 MG TABLET 17.2 MG PO (20:50)
[2020-01-06 23:07] VITALS: BP 142/72; PULSE 86; RESP 16; TEMP 37.1; O2SAT 98
[2020-01-07] VITALS (8 sets, daily range): BP systolic 70–131; BP diastolic 39–80; PULSE 80–105; RESP 12–16; TEMP 36.1–37.8; O2SAT 93–99
[2020-01-07] MEDS: HYDROMORPHONE 4 MG TABLET PO ×6 (00:05→19:44)
[2020-01-07] MEDS: hydrOXYzine pamoate 25 MG CAPSULE 50 MG PO ×4 (04:12→20:55)
--- NOTE | 2020-01-07 06:13 | PC.NURSE ---
AUDIO VIDEO REPAIRER note: patient asked for icy apple juice. This aide went to get that, when I heard something plastic fall in a patient room. Went into room. Patient's incentive spirometer was on the floor. Patient said she was really dizzy and weak. Took patient's blood pressure and called the nurse and charge nurse, who was walking by. Stayed with patient until she felt better.
--- NOTE | 2020-01-07 06:59 | PC.NURSE ---
Nurse aid went in to help pt to toilet and pt complained of dizziness, She helped pt from toilet to chair, put pt's feet up and helped her with her breathing. The aid reports low bp of 70/39 and then rechecked every 15 mins for next 45 mins, bp came up to 99/63. Pt states that she no longer feels dizzy and would like to stay in chair.
[2020-01-07] MEDS: DOCUSATE 100 MG CAPSULE PO ×2 (08:22→21:12)
[2020-01-07] MEDS: OXYCODONE ER 10 MG TAB PO ×2 (08:22→20:55)
[2020-01-07] MEDS: ASPIRIN EC 81 MG TABLET PO (08:22)
[2020-01-07] MEDS: GABAPENTIN 300 MG CAPSULE 1200 MG PO ×3 (08:22→20:54)
[2020-01-07] MEDS: SODIUM CHLORIDE 0.9% FLUSH 10 ML IV ×2 (08:25→21:13)
[2020-01-07] MEDS: LEVOTHYROXINE 125 MCG TABLET PO (08:25)
[2020-01-07] MEDS: SERTRALINE 50 MG TABLET 25 MG PO (08:26)
[2020-01-07] MEDS: diazePAM 5 MG TABLET PO ×3 (08:32→21:00)
[2020-01-07] MEDS: ACETAMINOPHEN 325 MG TABLET 650 MG PO ×2 (08:37→23:55)
--- NOTE | 2020-01-07 10:51 | P.DS_ITS ---
History of Present Illness History of Present Illness Date Patient Seen: 01/07/20 Time Patient Seen: 10:51 Chief complaint: Translaminar Interbody Fusion/Laminotomy *OPB* Narrative: Patient's pain has been moderate to severe. Denies fever chills. No nausea vomiting. She did work with physical therapy yesterday evening and states she did fairly well. She does live with her parents. Her parents will have difficulty caring for her. She has had some dizzy spells with getting up out of bed with therapy and to move to bedside chair. Discharge Providers Provider Date of admission: 01/05/20 15:48 Discharge Date: 01/07/20 Consults: 01/04/20 17:04 Consult to Occupational Therapy Evaluate & Treat Comment: Physician Instructions: Evaluate and treat Consult to Physical Therapy Evaluate & Treat Comment: Physician Instructions: Evaluate and Treat Discharge provider: Francis Rome PA-C Summary Hospital Course Discharge Diagnosis: L4-5 recurrent disc herniation 2. L4-5 spinal stenosis with radiculopathy with hx of microdiscectomy Morbidly obese BMI of 42.77 Postural hypotension History of left leg DVT Depression Hospital Course: 1. L4-5 Postero-lateral and posterior interbody fusion 2. L4-5 interbody cage placement. 3. L4-5 decompressive laminectomy with bilateral facetecomies 4. L4-5 Posterior non-segmental instrumentation 5. Guthrie of bone marrow from iliac crest 6. Utilization of microsurgical technique and operating microscope Same procedure as scheduled: Yes Indications: Patient has been having chronic back pain and worsening lumbar radiculopathy. Patient is status post previous lumbar microdiskectomy at the same level. Patient had good pain relief for over 6 months. Patient has progressive worsening radiculopathy with new MRI showing recurrent disc herniation causing radiculopathy on the left leg. Patient failed multiple conservative management with worsening pain weakness and numbness in her lower extremity. Patient has been having difficulty performing activity of daily living. After discussing risks benefits of treatment options, patient elected proceed with surgery. Surgeon: Kev Matt [employer] Video Editor: Ayde Gandara Click Yes if Unassisted: No Anesthesia Type: General Operative Notes Closure Type: primary Specimen(s): none sent Prosthetic devices, grafts, tissues, transplants, or devices: Globus revolve screws, Rise cage Estimated Blood Loss (mL): 50 Blood products transfused: none Patient admitted to the hospital for the above-mentioned procedure. Patient consented to the same. Patient taken to the operating room on January 04, 2020. Patient back in her room and is recovering. Postop day 1 patient had signific ant pain and spasms. Pain meds were adjusted. Patient mobilize with physical therapy only in her room on postop day 2. Pain was improved on postop day 2. Patient had some dizziness and felt like she was going to have a vasovagal episode. Patient has history of vasovagal episodes at home. She states today that she has had some dizziness with moving from bed to bedside chair. No nausea/ vomiting. No fever/ chills. Patient lives with her parents and states they would have significant difficulty helping her at home at this point. Status at Discharge Cognitive/behavioral status at discharge: at baseline, oriented Functional status at discharge: uses cane/walker Overall status at discharge: patient is progressing back to baseline Time Spent with Patient Time spent: Less than 30 minutes Exam Vital Signs (past 8 hours): - 01/07/20 05:45 01/07/20 05:50 01/07/20 07:00 Temperature 100.1 F H 99.6 F Pulse Rate 105 H 90 105 H Respiratory Rate 16 12 16 Blood Pressure 95/63 70/39 L 122/60 Pulse Oximetry 95 97 96 Oxygen Delivery Method Room Air Oxygen Flow Rate 0 Narrative Exam Narrative: Morbidly obese 39-year-old female resting comfortably in bedside chair in no apparent distress. Lumbar dressing is clean, dry and intact. Motor functions intact bilateral lower extremities. Sensation grossly intact to light touch bilateral lower extremities. Both calves are nontender to palpation. Bilateral lower extremities are warm and dry. Objective Labs Result Diagrams: 01/05/20 08:28 Discharge Assessment & Plan Assessment and Plan Assessment: Postop day 3. Status post TLIF. Patient progressing slowly and needs significant assistance with mobility. Patient having postural hypotension. [facility]. Discharge Plan Discharge Plan Patient Disposition: SNF Transfer to: [facility] Discharge orders & Medications Prescriptions: New acetaminophen 325 mg Tablet 650 mg PO Q6HR PRN (Reason: Pain, Mild (1-3)) Qty: 60 RF: 0 aspirin 81 mg Tablet,Delayed Release (Dr/Ec) 81 mg PO DAILY Qty: 30 RF: 0 hydromorphone 2 mg Tablet 2 mg PO Q3H PRN (Reason: Pain, Severe (7-10)) Qty: 40 RF: 0 docusate sodium [DOK] 100 mg Capsule 100 mg PO BID Qty: 30 RF: 0 hydroxyzine pamoate 25 mg Capsule 50 mg PO Q4HR PRN (Reason: Nausea And Vomiting) Qty: 30 RF: 0 oxycodone [OxyContin] 10 mg Tablet,Oral Only,Ext.Rel.12 Hr 10 mg PO BID Qty: 40 RF: 0 Continued gabapentin 300 mg Capsule 1,200 mg PO BID-TID PRN (Reason: Nerve Pain) RF: 0 sertraline 25 mg Tablet 25 mg PO DAILY RF: 0 norethindrone (contraceptive) 0.35 mg Tablet 0.35 mg PO DAILY RF: 0 levothyroxine 125 mcg Capsule 125 mcg PO DAILY RF: 0 Discontinued naproxen sodium [Aleve] 220 mg Capsule 440 mg PO DAILY PRN (Reason: Pain) RF: 0 Follow up/Referrals: Kev Matt MD [Physician] - (2 weeks) Discharge Health Status Multidrug resistant organism: No MDRO Diet/Activity/Treatments Diet: Diet as Tolerated Activity: Limit bending, lifting, twisting Cold/Heat Therapy: ice as needed Skin/Wound/Dressing Care Report to your healthcare provider any signs of infection, such as:: chills, fever, increased pain, unusual drainage and unusual redness Dressing: keep clean and dry Special Rehabilitation Services Reason for rehabilitation: Post-operative therapy Rehab type: Physical therapy and Occupational therapy Visit Report/Discharge Packet Instructions: How to Prevent Falls, DI for Postoperative Pain, DI for Prescription Opioid Use, DI for Transforaminal Lumbar Interbody Fusion Stand Alone Forms: Surgery Discharge Visit Report Forms: Stroke Signs & Symptoms Quality VTE Deep Vein Thrombosis/Pulmonary Embolism Present on Admission: No
--- NOTE | 2020-01-07 11:44 | PT.IPTN ---
Current Diagnoses Other spondylosis with radiculopathy, lumbosacral region (01/05/20) Spinal stenosis, lumbar region without neurogenic claudication (01/05/20) Other intervertebral disc displacement, lumbar region (01/05/20) Surgery Performed Operation Date: 01/04/20 12:15 Actual Procedures p L4-5 TLIF - Kev Matt MD Physical Therapy Treatment Note M2 PT-IP Current Condition Start: 01/05/20 12:23 Freq: NEEDED Status: Active Protocol: Document 01/05/20 09:00 AB (Rec: 01/05/20 12:42 AB [id number]) Physical Therapy Current Condition Current Condition Evaluation Date 01/05/20 Treatment Diagnosis s/p L4-5 fusion/lami; difficulty in walking Onset Date 01/04/20 Precautions Lumbar Precautions Log Roll,No Twisting,Limit Bending,Lifting Restriction of 10 lbs,Gait Belt above Incisional Area M3 PT-IP Subjective Start: 01/05/20 12:23 Freq: NEEDED Status: Active Protocol: Document 01/07/20 11:21 KS (Rec: 01/07/20 12:53 KS [id number]) Subjective Physical Therapy Visit Type Type Treatment Note Visit Start Time 11:21 Visit Stop Time 11:44 Total Visit Minutes 23 Number of [employer]CE [employer] EQUIPMENT TENDER Visits 4 Physical Therapy Visit Comments Patient Comments Pt agreeable to work w/ therapy. Therapy Pain Assessment Pain When Pain Assessed During Mobility Pain Present Pain Present Pain Reported Location Lower Back Scale Used not quantifed Description Sharp,Tightness Pain Behaviors Guarding,Restlessness,Wincing Pain Management Techniques Apply Cold,Distraction, Modification of Treatment,Re- positioning M4 PT-IP Mobility and Gait Start: 01/05/20 12:23 Freq: NEEDED Status: Active Protocol: Document 01/07/20 11:21 KS (Rec: 01/07/20 12:53 KS [id number]) PT-Bed Mobility Assessment Scooting Scooting to Edge of Bed Contact Guard Assistance PT-Transfer Assessment Sit to and From Stand Sit to and from Stand Contact Guard Assistance, Minimal Assistance,1 Person Assistance,Use of Upper Extremities Equipment Transfer Assistive Device Gait Belt,Front Wheeled Walker Orthotic/Prosthetic Devices or Brace: No Transfers Transfer Destination Chair Transfer Technique Pt ambulated w/ FWW Transfer Ability Level of Assist Minimal Assistance,1 Person Assistance,Use of Upper Extremities Comments Mobility Comments Pt on BSC upon arrival from therapy. CGA to Min A and cues for sit<>stand, pt still unable to perform her own pericare. Pt then ambulated ~ 20 ft around room before expressing increased pain and fatigue. Pt ambulated very slowly and cautiously w/ FWW and decreased stride length and foot clerance. She ambulated to chair and stand<> sit CGA. Pt able to scoot herself back into chair CGA. Reveiwed precautions and pt left in chair w/ all needs in reach. Gait Assessment Gait Gait Assistance Required: Contact Guard Assist,1 Person Assist Distance (Feet) 20 Able to Maintain Weight Bearing Status Yes During Gait Assistive Devices Assistive Device Gait Belt,Front Wheeled Walker Orthotic/Prosthetic Devices or Brace: No Gait Deviations General Gait Pattern Decreased Stride Length, Decreased Feet Clearance Factors Limiting Gait Function Factors Limiting Gait Function Decreased Activity Tolerance, Decreased Sensation,Decreased Strength,Difficulty Following Directions,Limited Range of Motion,Pain,Poor Balance,Poor Safety Awareness Comments Gait Comments Please refer to mobility section for details. Stair Climbing Assessment Comments Stair Climbing Comments unable to assess at this time. Pt will need to complete 2 steps prior to d/c if going home. PT-Balance Assessment Sitting Balance and Reactions Static Sitting Balance Ability Fair Dynamic Sitting Balance Ability Fair Standing Balance and Reactions Static Standing Balance Ability Fair Dynamic Standing Balance Ability Fair Device Used FWW M5 PT-IP Objective Assessments Start: 01/05/20 12:23 Freq: NEEDED Status: Active Protocol: Document 01/05/20 09:00 AB (Rec: 01/05/20 12:42 AB [id number]) Orientation Orientation/Cognition Level of Alertness Alert Orientation Name,Situation Safety Awareness Decreased Safety Awareness Gross Range of Motion Lower Extremity ROM Assessment Within Functional Limits Strength Lower Extremity Strength Assessment Bilaterally Impaired Comments Strength Comments RLE: 4-/5 LLE 3+/5 Coordination Assessment Gross Coordination Gross Coordination WNL Sensation Assessment Sensation Gross Sensation Left LE Impaired Comments Sensation Comments stated decrease sensation on L big and 2nd toes Muscle Tone Muscle Tone WNL Yes M6 PT-IP Treatment Start: 01/05/20 12:23 Freq: NEEDED Status: Active Protocol: Document 01/07/20 11:21 KS (Rec: 01/07/20 12:53 KS [id number]) Physical Therapy Treatment Education Education Provided Precautions,Weight Bearing Status,Post-Op Packet,Safety Other Treatments Other Treatment Performed pt able to recall spinal precautions M7 PT-IP Assessment and Plan Start: 01/05/20 12:23 Freq: NEEDED Status: Active Protocol: Document 01/07/20 11:21 KS (Rec: 01/07/20 12:53 KS [id number]) PT Summary Assessment and Plan Potential Rehabilitation Potential Good Status of Condition at Evaluation Evolving Summary Impairments Pain,ROM,Strength,Balance, Coordination,Sensation,Tone, Cognition,Bed Mobility, Transfers,Gait,Activity Tolerance Assessment Summary Pt continues to be limited by pain, weakness, and low tolerance for activity. CGA to Min A for sit<>Stand, CGA for ambulation. Pt only able to tolerate ~20 ft ambulation w/ FWW before c/o increased pain and fatigue. Pt will benefit from SNF to improve strength and functional mobility. Goals Bed Mobility Goal Standby Assistance Transfer Goal Standby Assistance,Front Wheeled Walker Gait Goal Standby Assistance,Front Wheel Walker Gait Distance 150 Other Goals improve ambulation using FWW 250 ft SBA up/down 1 step using FWW SBA up/down 12 steps using L rail SBA Days to Meet Goals 5 Frequency of Treatment Frequency Of Treatment Twice a Day Treatment Plan Physical Therapy Treatment Plan Bed Mobility Training,Transfer Training,Gait Training, Therapeutic Exercise,Balance Retraining,Post Op Education, Discharge Planning,Hot or Cold Pack,Neuromuscular Re-ed, Coordination Retraining Recommendations To Nursing Amount of Assist Needed 1 Person Assist Discharge Recommendations PT Discharge Recommendations Home with 22/09 Assist,SNF Rehab Transportation Needs at Discharge Private Vehicle,Wheelchair/ Cabulance
[2020-01-07 12:22] LABS: Hematocrit 33.4 % (36-46); Hemoglobin 11.1 g/dL (12.0-16.0); Mean Corpuscular HGB Conc 33.1 % (30-36); Mean Corpuscular Hemoglobin 28.4 PG (26-34); Mean Corpuscular Volume 85.7 fL (80-100); Platelet Count 276 X10^3/uL (150-400); White Blood Cell Count 10.5 X10^3/uL (4.5-11.0)
[2020-01-07 12:33] LABS: BUN Creatinine Ratio 19.8 (6-22); Blood Urea Nitrogen 16 mg/dL (7-17); Calcium 8.8 mg/dL (8.4-10.2); Carbon Dioxide 26 mmol/L (22-32); Chloride 105 mmol/L (98-107); Estimated Glomerular Filt Rate > 60.0 mL/min (>60); Glucose 124 mg/dL (70-100); HEMOLYSIS < 15 (0-50); Sodium 135 mmol/L (137-145)
--- NOTE | 2020-01-07 13:52 | CM.DPC ---
DCP SNF vs Home Per Ortho PA, pt could be stable for d/c to SNF today if a facility secured but her bp continues to be unstable with dizzy spells and not safe for d/c home today. SW updated that no SNF secured for discharge today as yesterday the plan was home and no accepting SNF facility found yet and pt's [facility] insurance is closed on the weekend and therefore no SNF auth can be obtained until Thursday at the earliest. PT worked with pt again today and feel pt could benefit from SNF mostly due to dizziness/bp and pt has stairs to enter her home. SW followed up on previously attempted SNF's: [facility]- left another msg [facility]- likely no female beds until further in the week [facility]- no weekend admissions [facility]- left msg [facility]- no answer [facility]- willing to review, would likely be willing to initiate SNF auth on Thursday if SNF still needed. SW met bedside with pt and explained role and she confirms that she had been hopeful for home but due to dizziness she feels unsteady and not safe for home yet. SW explained that still no accepting SNF identified yet and no insurance auth over the weekend. SW discussed that likely pt may progress enough with PT over the weekend that she may be safe to d/c home by tomorrow or Thursday. Pt acknowledged understanding that SNF is not a guarantee and that she may be ready for d/c prior to Thursday pending progress. Pt confirms that her parents plan to be available and have pt stay with them at d/c for assist if safe for home. SNF preference is either in [facility] or farther south like [facility] due to location of pt's home and parent's home. Plan: SW to continue calling SNF's for new referral and [facility] Thursday if pt gets insurance auth vs progresses enough to d/c home with parents to assist. REMY Castro
--- NOTE | 2020-01-07 15:23 | OT.IP.TRT ---
Current Diagnoses Other spondylosis with radiculopathy, lumbosacral region (01/05/20) Spinal stenosis, lumbar region without neurogenic claudication (01/05/20) Other intervertebral disc displacement, lumbar region (01/05/20) Surgery Performed Operation Date: 01/04/20 12:15 Actual Procedures p L4-5 TLIF - Kev Matt MD Occupational Therapy Treatment Note M2 OT-IP Current Condition Start: 01/05/20 17:12 Freq: Status: Active Protocol: Document 01/05/20 14:43 [facility] (Rec: 01/05/20 18:00 [facility] [id number]) Occupational Therapy Current Condition Current Condition Evaluation Date 01/05/20 Treatment Diagnosis spinal stenosis, S/P L4-5TLIF Post Operative Precautions Lumbar Precautions Log Roll,No Twisting,Limit Bending,Lifting Restriction of 10 lbs,Gait Belt above Incisional Area M3 OT- IP Subjective and Pain Start: 01/05/20 17:12 Freq: Status: Active Protocol: Document 01/07/20 16:18 CGR (Rec: 01/07/20 16:28 CGR [email or web address]) OT- Subjective Occupational Therapy Visit Type Type Progress Note Visit Start Time 14:49 Visit Stop Time 15:23 Total Visit Minutes 34 Occupational Therapy Visit Comments Patient Comments I just have to go slow. OT Pain Assessment Pain When Pain Assessed During Mobility Pain Present Pain Present Pain Reported Location Lower Back Intensity 7 Scale Used Numeric (0 - 10) Management Techniques Distraction,Modification of Treatment,Re-positioning M4 OT- IP ADL's Start: 01/05/20 17:12 Freq: Status: Active Protocol: Document 01/07/20 16:18 CGR (Rec: 01/07/20 16:28 CGR [id number]) OT [id number] Comments OT Self-Feeding Comments Not meal time OT ADL-Grooming General Evaluation Grooming Ability Standby Assistance Areas Needing Assistance Face Washing Comments OT Grooming Comments standing at sink OT ADL-Oral Care General Eval Oral Care Ability Standby Assistance Areas of Assistance Brushing Teeth,Retrieving/Set- Up of Items Comments Oral Care Comments standing at sink OT ADL-Dressing Comments OT Dressing Comments not performed OT ADL-Toileting General Evaluation Toileting Ability Maximum Assistance Areas Needing Assistance Perform Perineal Hygiene Comments OT Toileting Comments Pt urinated and had small BM. Pt needed assist for back pericare but was able to do her front pericare without assist. OT ADL-Bathing Comments OT Bathing Comments Not performed M5 OT- IP IADL's Start: 01/05/20 17:12 Freq: Status: Active Protocol: Document 01/05/20 14:43 [facility] (Rec: 01/05/20 18:00 [facility] [id number]) OT-Instrumental Activities of Daily Living Home Safety Awareness Awareness of Need for Assistance at Home Good Awareness Medication Management Medication Management Comments Pt states does her own medications. Money Management Money Management Comments Pt states her pays the bills. M6 OT- IP Functional Cognition Start: 01/05/20 17:12 Freq: Status: Active Protocol: Document 01/06/20 12:03 [facility] (Rec: 01/06/20 12:21 [facility] [id number]) Cognitive Factors Limiting Selfcare Function Cognitive Ability Level of Alertness Alert,Drowsy Patient Orientation Name,Place,Situation Attention Span Ability Capable of Focused Attention, Capable of Sustained Attention Ability to Follow Commands Able to Follow One Step Commands Cognitive Comments Cognitive Assessment Comments Pt very groogy and at times. Pt able to follow commands but very sleepy. Pt not needing as much encourgement and overall feeling much better about going home. M7 OT- IP Mobility and Balance Start: 01/05/20 17:12 Freq: Status: Active Protocol: Document 01/07/20 16:18 CGR (Rec: 01/07/20 16:28 CGR [email or web address]) OT- Bed Mobility Assessment Rolling Type of Rolling Log Rolling,Roll to Right Level of Assistance Standby Assistance,Bedrails Supine to Sit Supine to Sit Assist Minimal Assistance,1 Person Assistance Scooting Scooting to Edge of Bed Minimal Assistance,Moderate Assistance OT-Transfer Assessment Sit to and From Stand Sit to and from Stand Contact Guard Assistance Transfers Transfer Ability Contact Guard Assistance Technique Transfer Destination Bed,Bedside Commode,Chair Transfer Technique Stand Step Pivot Devices Transfer Assistive Devices Gait Belt,Front Wheeled Walker Comments Mobility Comments Pt was able to perform bed mobility with assist to bring her hips forward in sidelying then again to pull her hips forward once seated. OT- Gait Assessment Gait Gait Assistance Required: Contact Guard Assist Assistive Devices Assistive Device Gait Belt,Front Wheeled Walker Comments Gait Ability Comments Pt ambualted around the room with CGA OT- Balance Assessment Sitting Balance and Reactions Static Sitting Balance Ability Normal Dynamic Sitting Balance Ability Good M8 OT- IP Objective Assessments Start: 01/05/20 17:12 Freq: Status: Active Protocol: Document 01/05/20 14:43 [facility] (Rec: 01/05/20 18:00 [facility] [id number]) OT Gross Range of Motion Upper Extremity Range of Motion ROM Impairments 0-110 for RUE for shoulder flexion and 0-100 LUE. OT- Coordination Assessment Comments Coordination Comments WFL to open packages. OT-Muscle Tone Assessment Muscle Tone WNL Yes M9 OT- IP Assessment and Plan Start: 01/05/20 17:12 Freq: Status: Active Protocol: Document 01/07/20 16:18 [facility]GR (Rec: 01/07/20 16:28 CGR [id number]) OT Summary Assessment and Plan Potential Rehabilitation Potential Good Analytic Complexity at Evaluation Low Summary OT Impairments Pain,Balance,Functional Cognition,Functional Mobility, Grooming,Dressing,Toileting, Bathing,Toilet Transfers, Shower Transfers,Activity Tolerance Progress Towards Goals Progressing Toward Goals Assessment Summary Pt with improvement in her mobility noted today. Pt participated in a 34 minute session without dizziness and appears to be feeling better overall. Pt used BSC, stood at sink for ADLs and performed bed mobility with little assist. Pt will continue to benefit from therapy services. Pt may be ok to discharge home at this time with family support vs SNF. Goals Grooming Goal Independent Dressing Goal Independent Toileting Goal Independent Bathing Goal Independent Toilet Transfer Goal Independent Shower Transfer Goal Independent Patient/Caregiver Education Goal Demonstrate Post-Op Precautions Days to Meet Goals 20 Frequency of Treatment Frequency Of Treatment Once a Day Treatment Plan OT Treatment Plan ADL Training,Functional Cognition Training,Functional Mobility,Patient/Family Education,Discharge Planning Other Treatment Recommendations and Next Possible shower. Treatment Focus Discharge Recommendations OT Discharge Recommendations Home with Assistance,Home Health,SNF Rehab Home Equipment Needs BSC or toilet safety frame, tub bench Transportation Needs at Discharge Private Vehicle
--- NOTE | 2020-01-07 15:43 | PT.IPTN ---
Current Diagnoses Other spondylosis with radiculopathy, lumbosacral region (01/05/20) Spinal stenosis, lumbar region without neurogenic claudication (01/05/20) Other intervertebral disc displacement, lumbar region (01/05/20) Surgery Performed Operation Date: 01/04/20 12:15 Actual Procedures p L4-5 TLIF - Kev Matt MD Physical Therapy Treatment Note M2 PT-IP Current Condition Start: 01/05/20 12:23 Freq: NEEDED Status: Active Protocol: Document 01/05/20 09:00 AB (Rec: 01/05/20 12:42 AB [id number]) Physical Therapy Current Condition Current Condition Evaluation Date 01/05/20 Treatment Diagnosis s/p L4-5 fusion/lami; difficulty in walking Onset Date 01/04/20 Precautions Lumbar Precautions Log Roll,No Twisting,Limit Bending,Lifting Restriction of 10 lbs,Gait Belt above Incisional Area M3 PT-IP Subjective Start: 01/05/20 12:23 Freq: NEEDED Status: Active Protocol: Document 01/07/20 15:23 KS (Rec: 01/07/20 16:12 KS [id number]) Subjective Physical Therapy Visit Type Type Treatment Note Visit Start Time 15:23 Visit Stop Time 15:43 Total Visit Minutes 20 Number of DEVULCANIZER TENDER Visits 5 Physical Therapy Visit Comments Patient Comments Pt agreeable to work w/ therapy. M4 PT-IP Mobility and Gait Start: 01/05/20 12:23 Freq: NEEDED Status: Active Protocol: Document 01/07/20 15:23 KS (Rec: 01/07/20 16:12 KS [id number]) PT-Bed Mobility Assessment Rolling Type of Rolling Log Rolling Level of Assist Minimal Assistance,1 Person Assistance Sit to Supine Sit to Supine Minimal Assistance,1 Person Assistance,Bedrails Scooting Scooting to Edge of Bed Contact Guard Assistance Scooting Up and Down in Bed Moderate Assistance PT-Transfer Assessment Sit to and From Stand Sit to and from Stand Contact Guard Assistance,1 Person Assistance,Use of Upper Extremities Equipment Transfer Assistive Device Gait Belt,Front Wheeled Walker Orthotic/Prosthetic Devices or Brace: No Transfers Transfer Destination Bed,Chair Transfer Technique Pt ambulated w/ FWW Transfer Ability Level of Assist Minimal Assistance,1 Person Assistance,Use of Upper Extremities Comments Mobility Comments Pt in chair upon arrival from therapy. CGA for sit<>stand. Pt then ambulated ~30 ft around room w/ FWW CGA. Pt expressed fatigue and requested to sit down. After 2 min seated rest break, pt requested to get back into bed . CGA for sit<>stand, pt then ambulated ~10 ft to other side of bed and performed sit<> sidelying Min A for LE guidance w/ cues to maintain spinal alignment. Pt left in bed w/ all needs in reach. Gait Assessment Gait Gait Assistance Required: Contact Guard Assist,1 Person Assist Distance (Feet) 40 Able to Maintain Weight Bearing Status Yes During Gait Assistive Devices Assistive Device Gait Belt,Front Wheeled Walker Orthotic/Prosthetic Devices or Brace: No Gait Deviations General Gait Pattern Decreased Stride Length, Decreased Feet Clearance Factors Limiting Gait Function Factors Limiting Gait Function Decreased Activity Tolerance, Decreased Sensation,Decreased Strength,Difficulty Following Directions,Limited Range of Motion,Pain,Poor Balance,Poor Safety Awareness Comments Gait Comments Pt ambulated ~40 ft w/ FWW and CGA. Pt is limited in ambulation distance by low tolerance for activity. Stair Climbing Assessment Comments Stair Climbing Comments unable to assess at this time. Pt will need to complete 2 steps prior to d/c if going home. PT-Balance Assessment Sitting Balance and Reactions Static Sitting Balance Ability Fair Dynamic Sitting Balance Ability Fair Standing Balance and Reactions Static Standing Balance Ability Fair Dynamic Standing Balance Ability Fair Device Used FWW M5 PT-IP Objective Assessments Start: 01/05/20 12:23 Freq: NEEDED Status: Active Protocol: Document 01/05/20 09:00 AB (Rec: 01/05/20 12:42 AB [id number]) Orientation Orientation/Cognition Level of Alertness Alert Orientation Name,Situation Safety Awareness Decreased Safety Awareness Gross Range of Motion Lower Extremity ROM Assessment Within Functional Limits Strength Lower Extremity Strength Assessment Bilaterally Impaired Comments Strength Comments RLE: 4-/5 LLE 3+/5 Coordination Assessment Gross Coordination Gross Coordination WNL Sensation Assessment Sensation Gross Sensation Left LE Impaired Comments Sensation Comments stated decrease sensation on L big and 2nd toes Muscle Tone Muscle Tone WNL Yes M6 PT-IP Treatment Start: 01/05/20 12:23 Freq: NEEDED Status: Active Protocol: Document 01/07/20 15:23 KS (Rec: 01/07/20 16:12 KS [id number]) Physical Therapy Treatment Education Education Provided Precautions,Weight Bearing Status,Post-Op Packet,Safety M7 PT-IP Assessment and Plan Start: 01/05/20 12:23 Freq: NEEDED Status: Active Protocol: Document 01/07/20 15:23 KS (Rec: 01/07/20 16:12 KS [id number]) PT Summary Assessment and Plan Potential Rehabilitation Potential Good Status of Condition at Evaluation Evolving Summary Impairments Pain,ROM,Strength,Balance, Coordination,Sensation,Tone, Cognition,Bed Mobility, Transfers,Gait,Activity Tolerance Assessment Summary Pt able to tolerate further ambulation distance this PM, but still has quick onset of fatigue resulting in her needing to sit quickly. Pt Min A for logroll, CGA for sit<> stand, CGA for ambulation, Mod A for scooting in bed. Pt will benefit from SNF to improve tolerance for activity and functional mobility. Goals Bed Mobility Goal Standby Assistance Transfer Goal Standby Assistance,Front Wheeled Walker Gait Goal Standby Assistance,Front Wheel Walker Gait Distance 150 Other Goals improve ambulation using FWW 250 ft SBA up/down 1 step using FWW SBA up/down 12 steps using L rail SBA Days to Meet Goals 5 Frequency of Treatment Frequency Of Treatment Twice a Day Treatment Plan Physical Therapy Treatment Plan Bed Mobility Training,Transfer Training,Gait Training, Therapeutic Exercise,Balance Retraining,Post Op Education, Discharge Planning,Hot or Cold Pack,Neuromuscular Re-ed, Coordination Retraining Other Recommendations and Next Treatment increase ambulation distance w Focus / FWW Recommendations To Nursing Amount of Assist Needed 1 Person Assist Discharge Recommendations PT Discharge Recommendations Home with 22/09 Assist,SNF Rehab Transportation Needs at Discharge Private Vehicle,Wheelchair/ Cabulance
[2020-01-07] MEDS: SENNOSIDES 8.6 MG TABLET 17.2 MG PO (16:33)
[2020-01-07] MEDS: MAGNESIUM HYDROXIDE 30 ML UDC PO (16:35)
--- NOTE | 2020-01-07 22:12 | PC.NURSE ---
Pt is A and O x 4 VSS including BP. Pt denies dizziness. Pt rates her pain at 7-8/10. She has been taking 4 mg po dilaudid q 3 hours and 50 mg po visteril which has been helpful. Pt has had a BM this shift and is voiding qs clear yellow on the toilet. She is eating and is able to sleep. Dressing is c/d/i.
[2020-01-08] VITALS: BP 115/66; PULSE 99; RESP 16; TEMP 36.2; O2SAT 99
[2020-01-08] MEDS: HYDROMORPHONE 2 MG TABLET PO (00:40)
[2020-01-08] MEDS: HYDROMORPHONE 0.5 MG INJ IV (01:27)
[2020-01-08] MEDS: diazePAM 5 MG TABLET PO ×3 (03:38→18:13)
[2020-01-08 05:42] VITALS: BP 98/57; PULSE 75; RESP 16; TEMP 36.2; O2SAT 96
[2020-01-08] MEDS: ONDANSETRON 4 MG/2 ML INJ IV (06:08)
[2020-01-08] MEDS: ACETAMINOPHEN 325 MG TABLET 650 MG PO ×2 (06:08→12:16)
[2020-01-08] MEDS: GABAPENTIN 300 MG CAPSULE 1200 MG PO ×2 (08:47→14:53)
[2020-01-08] MEDS: DOCUSATE 100 MG CAPSULE PO (08:48)
[2020-01-08] MEDS: ASPIRIN EC 81 MG TABLET PO (08:48)
[2020-01-08] MEDS: OXYCODONE ER 10 MG TAB PO (08:48)
[2020-01-08] MEDS: SODIUM CHLORIDE 0.9% FLUSH 10 ML IV (08:53)
[2020-01-08] MEDS: SERTRALINE 50 MG TABLET 25 MG PO (08:54)
[2020-01-08] MEDS: HYDROMORPHONE 4 MG TABLET PO ×4 (09:00→18:13)
[2020-01-08] MEDS: LEVOTHYROXINE 125 MCG TABLET PO (09:00)
--- NOTE | 2020-01-08 10:04 | PM.PN.1 ---
Subjective Subjective Date Patient Seen: 01/08/20 Time Patient Seen: 10:04 Interval history: POD #4 s/p L4-[address] Matt. Patient's pain is better controlled today with OxyContin ER 10 mg b.i.d., Dilaudid 4 mg every 3 hours, Vistaril 50 mg every 4 hours, and Valium 5 mg every 6 hours. Patient states she would be going to her parent's home which is not safe and conducive after surgery due to 15 stairs and high beds. She has only mobilized in her room with physical therapy. She states that when she has to stand she feels like she is going to have a vasovagal episodes. She also states that she is anxious whenever she has to stand and has a lot of anxiety. The Valium is helping with her muscle spasms and anxiety. In addition patient complains of positional right thigh numbness. Exam Vital Signs (past 8 hours): - 01/08/20 05:42 Temperature 97.2 F L Pulse Rate 75 Respiratory Rate 16 Blood Pressure 98/57 L Pulse Oximetry 96 Oxygen Delivery Method Room Air Oxygen Flow Rate 0 Narrative Exam Narrative: Morbidly obese 39-year-old female resting comfortably in bedside chair in no apparent distress. Lumbar dressing is clean, dry and intact. Motor functions intact bilateral lower extremities. Sensation grossly intact to light touch bilateral lower extremities, with the exception of decreased sensation to the lateral aspect right thigh. Both calves are nontender to palpation. Bilateral lower extremities are warm and dry. Objective Labs Result Diagrams: 01/07/20 12:02 01/07/20 12:02 Labs: Laboratory Results - last 24 hr 01/07/20 01/07/20 12:02 12:02 WBC 10.5 RBC 3.90 L Hgb 11.1 L Hct 33.4 L MCV 85.7 MCH 28.4 MCHC 33.1 RDW 14.0 Plt Count 276 Sodium 135 L Potassium 4.0 Chloride 105 Carbon Dioxide 26 BUN 16 Creatinine 0.81 Estimated GFR > 60.0 BUN/Creatinine Ratio 19.8 Glucose 124 H Calcium 8.8 Assessment & Plan Assessment & Plan narrative: Status post TLIF. Patient progressing slowly and needs significant assistance with mobility. Patient having postural hypotension. Continue current pain control. Given patient's slow mobility with a contributing factor of her obesity, she may need a SNF for continued care after surgery. Patient will be [facility] to [facility] today. Time Spent With Patient Time with patient: less than 15 minutes Quality VTE Deep Vein Thrombosis/Pulmonary Embolism Present on Admission: No
--- NOTE | 2020-01-08 11:44 | PT.IPTN ---
Current Diagnoses Other spondylosis with radiculopathy, lumbosacral region (01/05/20) Spinal stenosis, lumbar region without neurogenic claudication (01/05/20) Other intervertebral disc displacement, lumbar region (01/05/20) Surgery Performed Operation Date: 01/04/20 12:15 Actual Procedures p L4-5 TLIF - Kev Matt MD Physical Therapy Treatment Note M2 PT-IP Current Condition Start: 01/05/20 12:23 Freq: NEEDED Status: Active Protocol: Document 01/05/20 09:00 AB (Rec: 01/05/20 12:42 AB [id number]) Physical Therapy Current Condition Current Condition Evaluation Date 01/05/20 Treatment Diagnosis s/p L4-5 fusion/lami; difficulty in walking Onset Date 01/04/20 Precautions Lumbar Precautions Log Roll,No Twisting,Limit Bending,Lifting Restriction of 10 lbs,Gait Belt above Incisional Area M3 PT-IP Subjective Start: 01/05/20 12:23 Freq: NEEDED Status: Active Protocol: Document 01/08/20 11:02 CLB (Rec: 01/08/20 15:12 CLB [id number]) Subjective Physical Therapy Visit Type Type Treatment Note Visit Start Time 11:02 Visit Stop Time 11:44 Total Visit Minutes 42 Number of ORNAMENT STITCHER Visits 6 Physical Therapy Visit Comments Patient Comments Pt agreeable to work w/ therapy. Therapy Pain Assessment Pain When Pain Assessed During Mobility Pain Present Pain Present Pain Reported M4 PT-IP Mobility and Gait Start: 01/05/20 12:23 Freq: NEEDED Status: Active Protocol: Document 01/08/20 11:02 CLB (Rec: 01/08/20 15:12 CLB [id number]) PT-Bed Mobility Assessment Rolling Type of Rolling Log Rolling Level of Assist Standby Assistance,1 Person Assistance Scooting Scooting to Edge of Bed Standby Assistance PT-Transfer Assessment Sit to and From Stand Sit to and from Stand Standby Assistance,1 Person Assistance,Use of Upper Extremities Equipment Transfer Assistive Device Gait Belt,Front Wheeled Walker Orthotic/Prosthetic Devices or Brace: No Transfers Transfer Destination Chair Transfer Technique Pt ambulated w/ FWW Transfer Ability Level of Assist Standby Assistance,1 Person Assistance,Use of Upper Extremities Comments Mobility Comments Pt in bed sidelying on right side. Pt able to sit from sidelying SBA and scoot to EOB SBA. Pt then stood SBA and ambulated in dixon ~120ft using FWW/SBA with slow steady gait . Pt then returned to room requiring SBA to sit on BSC. Pt able to perform own pericare. Pt climbed platform step x2 requiring CGA. Pt able to climb stair w/o complaint of increased pain. Pt then ambulated to chair. Left pt in reclined chair with ice on back. Call light and all other needs within reach. Informed RN Cydney of pt mobility. Gait Assessment Gait Gait Assistance Required: Standby Assistance,1 Person Assist Distance (Feet) 120 Able to Maintain Weight Bearing Status Yes During Gait Assistive Devices Assistive Device Gait Belt,Front Wheeled Walker Orthotic/Prosthetic Devices or Brace: No Gait Deviations General Gait Pattern Decreased Stride Length, Decreased Feet Clearance Factors Limiting Gait Function Factors Limiting Gait Function Decreased Activity Tolerance, Decreased Sensation,Decreased Strength,Difficulty Following Directions,Limited Range of Motion,Pain,Poor Balance Comments Gait Comments Pt increased gait distance to ~120ft w/FWW/SBA. Pt uses slow lukas requiring extra time. Pt recalled 3/3 back precautions and uses care during turning with walker to prevent twisting. Stair Climbing Assessment Evaluation Level of Assist On Stairs Contact Guard Assistance Devices Stair Climbing Assistive Devices Front Wheel Walker Technique/Endurance Stair Climbing Direction Ascend and Descend Stair Climbing Technique Step to Step Number of Steps Climbed 1 Stair Climbing Set # Repetitions (reps) 2 Comments Stair Climbing Comments Pt able to climb two platform steps with FWW CGA. M5 PT-IP Objective Assessments Start: 01/05/20 12:23 Freq: NEEDED Status: Active Protocol: Document 01/05/20 09:00 AB (Rec: 01/05/20 12:42 [id number]) Orientation Orientation/Cognition Level of Alertness Alert Orientation Name,Situation Safety Awareness Decreased Safety Awareness Gross Range of Motion Lower Extremity ROM Assessment Within Functional Limits Strength Lower Extremity Strength Assessment Bilaterally Impaired Comments Strength Comments RLE: 4-/5 LLE 3+/5 Coordination Assessment Gross Coordination Gross Coordination WNL Sensation Assessment Sensation Gross Sensation Left LE Impaired Comments Sensation Comments stated decrease sensation on L big and 2nd toes Muscle Tone Muscle Tone WNL Yes M6 PT-IP Treatment Start: 01/05/20 12:23 Freq: NEEDED Status: Active Protocol: Document 01/07/20 15:23 KS (Rec: 01/07/20 16:12 KS [id number]) Physical Therapy Treatment Education Education Provided Precautions,Weight Bearing Status,Post-Op Packet,Safety M7 PT-IP Assessment and Plan Start: 01/05/20 12:23 Freq: NEEDED Status: Active Protocol: Document 01/08/20 11:02 CLB (Rec: 01/08/20 15:12 CLB [id number]) PT Summary Assessment and Plan Potential Rehabilitation Potential Good Status of Condition at Evaluation Evolving Summary Impairments Pain,ROM,Strength,Balance, Coordination,Sensation,Tone, Cognition,Bed Mobility, Transfers,Gait,Activity Tolerance Assessment Summary Pt is SBA for all bed mobility , transfers and CGA for stair climbing. Pt able to increase gait distance to ~120ft w/FWW/ SBA. Goals Bed Mobility Goal Standby Assistance Transfer Goal Standby Assistance,Front Wheeled Walker Gait Goal Standby Assistance,Front Wheel Walker Gait Distance 150 Other Goals improve ambulation using FWW 250 ft SBA up/down 1 step using FWW SBA up/down 12 steps using L rail SBA Days to Meet Goals 5 Frequency of Treatment Frequency Of Treatment Twice a Day Treatment Plan Physical Therapy Treatment Plan Bed Mobility Training,Transfer Training,Gait Training, Therapeutic Exercise,Balance Retraining,Post Op Education, Discharge Planning,Hot or Cold Pack,Neuromuscular Re-ed, Coordination Retraining Other Recommendations and Next Treatment increase ambulation distance w Focus / FWW Recommendations To Nursing Amount of Assist Needed 1 Person Assist Discharge Recommendations PT Discharge Recommendations Home with Assistance Transportation Needs at Discharge Private Vehicle
[2020-01-08 12:25] VITALS: BP 129/55; PULSE 90; RESP 18; TEMP 37.1; O2SAT 98
--- NOTE | 2020-01-08 15:27 | PC.NURSE ---
Pain: Reviewed pain med regime. Pt reporting differing pain issues. Had a better response to dilaudid 4mg and was able to work with PT and reported her pain was controlled. Having some spasms mid day and received valium po which she said was effective for spasms. Awaiting md to see pt, she might d/c home.
--- NOTE | 2020-01-08 15:41 | CM.DPC ---
DCP Discharge Home with HH Per Ortho , pt is medically stable to d/c today and GLADIS updated on PT from today that pt was able to complete all SBA but CGA for stairs and no bp issues and recommending safe d/c home with HH and SNF not needed. GLADIS updated Ortho that pt's insurance could not be contacted until tomorrow Thursday and SNF would not be approved due to pt's progress with PT. Ortho agreeable with home with family assist and HH and signed the F2F and his earlier note from today states SNF but he says he will complete d/c order for home with HH. GLADIS met bedside with pt and explained role again and discussed progress with PT and recommendation for HH and explained HH services and frequency and pt agreeable and no HH preference and confirms she will be staying at her parent's house [address] [facility] [address] and HH should work with her there and contact her on her listed cell number. SW discussed likely d/c home today and pt initially states she feels she should stay and d/c tomorrow and SW explained that MD has to medically justify a reason to stay admitted otherwise insurance would not pay. Pt states she will rest and think about d/c. SW called pt's mother listed as contact and she confirms that pt's father planned to arrive bedside around 1700 today to visit and GLADIS updated on pt progress with PT, recommendation of HH and what that entails, and MD writing d/c orders and mother very appreciative and father will provide transport home this evening. GLADIS contacted [facility] due to Vendor Calendar and confirmed they cover [facility] and that they accept [facility] insurance and SW faxed new referral including F2F, MD orders, and d/c summary. GLADIS updated RNs with plan of home this evening. Plan: Patient to d/c home via father's POV and to stay at parent's house for assist and new [facility] referral. REMY Castro
[2020-01-08 16:00] VITALS: BP 116/82; PULSE 85; RESP 17; TEMP 36.8; O2SAT 98
--- NOTE | 2020-01-08 18:42 | PC.NURSE ---
Evening Shift Note- Patient D/C'ed home. Discharge instructions and educaton reviewed with patient and signed. IV line removed and bandaid applied. Dressing to back changed, coversite placed. Patient tolerated without issue. Patient medicated with valuim and PO dilaudid prior to discharge. ORE FIELDER help patient dress and pack up all personal belongings. Patient left via wheelchair with all personal belongings. Patients father met at ER entrance at [phone].
== END 2020-01-08 18:15 | disposition home health service (06) | DRG 454 ==
LOC: OR 01-06 09:36 → AC 01-06 09:36
PROVIDERS: Physician Assistant Medical; Admitting Provider Physician Assistant Surgical; Referring Provider Orthopaedic Surgery Orthopaedic Surgery of the Spine; Visit Provider Orthopaedic Surgery Orthopaedic Surgery of the Spine
DX: M51.26 Other intervertebral disc displacement, lumbar region (principal); Z68.41 Body mass index [BMI] 40.0-44.9, adult; M48.061 Spinal stenosis, lumbar region without neurogenic claudication; I95.1 Orthostatic hypotension; G89.18 Other acute postprocedural pain; E66.01 Morbid (severe) obesity due to excess calories; M47.27 Other spondylosis with radiculopathy, lumbosacral region; E06.3 Autoimmune thyroiditis; F32.9 Major depressive disorder, single episode, unspecified; M62.838 Other muscle spasm; F41.9 Anxiety disorder, unspecified; Z86.718 Personal history of other venous thrombosis and embolism
CPT/HCPCS: 36415; 36592; 72100; 76000; 80048; 85027; 97116; 97162; 97165; 97530; 97535; C1776; C9290; J0330; J0690; J1100; J1170; J2250; J2405; J2704; J3010; J3410